=== PATIENT | male | born 1940 | race Caucasian/White ===

== ENCOUNTER → 2017-01-24 | Outpatient (CLI) | payer MEDICARE ==
[~2017-01-24] VITALS: Ht 180.3 cm; Wt 94.3 kg
[~2017-01-24] MED LIST: AMLO5TAB2 PO; ASPI81TA85 PO; BRIN1OPH OU; FINA5TAB2 PO; FISH1000 PO; LATA5OPD OD; LIDOCAINE 2% INJ 100 MG/5 ML SDV (FOR ANES.) As Ordered ONE; LISI-538 PO; LR 1,000 ML IV SCH; MULT1TAB11 PO; NAPR500T2 PO; PROPOFOL 200 MG/20 ML VIAL As Ordered ONE; SIMV10TA2 PO; SYMB16INH INH; fentaNYL 100 MCG/2 ML INJECTION (J3010) As Ordered ONE
--- NOTE | 2017-01-24 10:59 | ROOR ---
Patient Name: Tony Musa Procedure Date: 01/24/2017 10:04 AM Date of : 1940 Age: 76 Room: [facility] Gender: Male Note Status: Finalized Procedure: Upper GI endoscopy Indications: Iron deficiency anemia Providers: Toby Turcios MD Referring MD: Larry Diaz MD Requesting Provider: Medicines: Monitored Anesthesia Care Complications: No immediate complications. Procedure: Pre-Anesthesia Assessment: - Prior to the procedure, a History and Physical was performed, and patient medications and allergies were reviewed. The patient is competent. The risks and benefits of the procedure and the sedation options and risks were discussed with the patient. All questions were answered and informed consent was obtained. Patient identification and proposed procedure were verified by the physician, the nurse and the anesthesiologist in the procedure room. Mental Status Examination: alert and oriented. Airway Examination: normal oropharyngeal airway and neck mobility. CV Examination: regular rate and rhythm. Prophylactic Antibiotics: The patient does not require prophylactic antibiotics. Prior Anticoagulants: The patient has taken no previous anticoagulant or antiplatelet agents. ASA Grade Assessment: II - A patient with mild systemic disease. After reviewing the risks and benefits, the patient was deemed in satisfactory condition to undergo the procedure. The anesthesia plan was to use monitored anesthesia care (MAC). Immediately prior to administration of medications, the patient was re-assessed for adequacy to receive sedatives. The heart rate, respiratory rate, oxygen saturations, blood pressure, adequacy of pulmonary ventilation, and response to care were monitored throughout the procedure. The physical status of the patient was re-assessed after the procedure. The Endoscope was introduced through the mouth, and advanced to the second part of duodenum. The upper GI endoscopy was accomplished without difficulty. The patient tolerated the procedure well. Findings: The examined esophagus was normal. The entire examined stomach was normal. One non-bleeding linear duodenal ulcer was found in the duodenal bulb. Patient has a linear erosion/scar consistent witha healing/healed ulcer. Impression: - Normal esophagus. - Normal stomach. - One non-bleeding duodenal ulcer. - No specimens collected. Recommendation: - Discharge patient to home. - Resume previous diet. - Continue present medications. Toby Turcios MD 01/24/2017 10:59:23 AM Number of Addenda: 0 Note Initiated On: 01/24/2017 10:04 AM Estimated Blood Loss: Estimated blood loss: none.
--- NOTE | 2017-01-24 11:31 | ROOR ---
Patient Name: Tony Musa Procedure Date: 01/24/2017 10:05 AM Date of : 1940 Age: 76 Room: [facility] Gender: Male Note Status: Finalized Procedure: Colonoscopy Indications: Iron deficiency anemia Providers: Toby Turcios MD Referring MD: Larry Diaz MD Requesting Provider: Medicines: Monitored Anesthesia Care Complications: No immediate complications. Procedure: Pre-Anesthesia Assessment: - Prior to the procedure, a History and Physical was performed, and patient medications and allergies were reviewed. The patient is competent. The risks and benefits of the procedure and the sedation options and risks were discussed with the patient. All questions were answered and informed consent was obtained. Patient identification and proposed procedure were verified by the physician, the nurse and the anesthesiologist in the procedure room. Mental Status Examination: alert and oriented. Airway Examination: normal oropharyngeal airway and neck mobility. CV Examination: regular rate and rhythm. Prophylactic Antibiotics: The patient does not require prophylactic antibiotics. Prior Anticoagulants: The patient has taken no previous anticoagulant or antiplatelet agents. ASA Grade Assessment: II - A patient with mild systemic disease. After reviewing the risks and benefits, the patient was deemed in satisfactory condition to undergo the procedure. The anesthesia plan was to use monitored anesthesia care (MAC). Immediately prior to administration of medications, the patient was re-assessed for adequacy to receive sedatives. The heart rate, respiratory rate, oxygen saturations, blood pressure, adequacy of pulmonary ventilation, and response to care were monitored throughout the procedure. The physical status of the patient was re-assessed after the procedure. The Colonoscope was introduced through the anus and advanced to the cecum, identified by appendiceal orifice and ileocecal valve. The colonoscopy was somewhat difficult due to significant looping. The patient tolerated the procedure well. The quality of the bowel preparation was excellent. Findings: The perianal and digital rectal examinations were normal. A few medium-mouthed diverticula were found in the sigmoid colon. The transverse colon, hepatic flexure and ascending colon revealed significantly excessive looping. The exam was otherwise without abnormality. Impression: - Diverticulosis in the sigmoid colon. - There was significant looping of the colon. - The examination was otherwise normal. - No specimens collected. Recommendation: - Discharge patient to home. - Resume previous diet. Toby Turcios MD 01/24/2017 11:31:27 AM Number of Addenda: 0 Note Initiated On: 01/24/2017 10:05 AM Estimated Blood Loss: Estimated blood loss: none.
[2017-01-24 11:38] VITALS: BP 124/66
== END ==
LOC: M OPP 08:14
PROVIDERS: ATTEND Surgery
DX: D50.9 Iron deficiency anemia, unspecified (principal); Z86.010 Personal history of colon polyps; Q43.8 Other specified congenital malformations of intestine; K26.9 Duodenal ulcer, unspecified as acute or chronic, without hemorrhage or perforation; I10 Essential (primary) hypertension; E78.00 Pure hypercholesterolemia, unspecified; Z87.891 Personal history of nicotine dependence; Z79.82 Long term (current) use of aspirin; Z79.899 Other long term (current) drug therapy; Z88.0 Allergy status to penicillin
CPT/HCPCS: 43235; 45378; 99156; 99157; J3010

== ENCOUNTER 2017-02-22 09:15 | Outpatient (RCR) | payer MEDICARE ==
[~2017-02-22 09:15] MED LIST changes: -LIDOCAINE 2% INJ 100 MG/5 ML SDV (FOR ANES.) As Ordered ONE; -LR 1,000 ML IV SCH; -PROPOFOL 200 MG/20 ML VIAL As Ordered ONE; -fentaNYL 100 MCG/2 ML INJECTION (J3010) As Ordered ONE
== END 2017-02-24 ==
LOC: M OT 09:15
PROVIDERS: ATTEND Family Medicine
DX: Z51.89 Encounter for other specified aftercare (principal); M65.331 Trigger finger, right middle finger
CPT/HCPCS: 97035; 97140; 97165; 97760; G8984; G8985

== ENCOUNTER 2017-03-16 10:02 | Outpatient (RCR) | payer MEDICARE | END 2017-03-26 | LOC: M OT 10:02 | PROVIDERS: ATTEND Family Medicine | DX: Z51.89 Encounter for other specified aftercare (principal); M65.331 Trigger finger, right middle finger; M79.641 Pain in right hand; M79.642 Pain in left hand | CPT/HCPCS: 97035; 97110; 97140; G8984; G8985 ==

== ENCOUNTER 2017-04-25 09:41 | Outpatient (RCR) | payer MEDICARE | END 2017-04-26 | LOC: M OT 09:41 | PROVIDERS: ATTEND Family Medicine | DX: Z51.89 Encounter for other specified aftercare (principal); M65.331 Trigger finger, right middle finger | CPT/HCPCS: 97035; 97110; 97168; G8984; G8985 ==

== ENCOUNTER 2017-05-09 09:37 | Outpatient (RCR) | payer MEDICARE ==
[~2017-05-09 09:37] MED LIST changes: -NAPR500T2 PO; +NAPR500T3 PO
== END 2017-05-26 ==
LOC: M OT 09:37
PROVIDERS: ATTEND Family Medicine
DX: Z51.89 Encounter for other specified aftercare (principal); M65.331 Trigger finger, right middle finger
CPT/HCPCS: 97035; 97110; G8984; G8985; G8986

== ENCOUNTER → 2017-05-17 | Outpatient (CLI) | payer MEDICARE ==
[~2017-05-17] MED LIST changes: +NAPR500T2 PO; -NAPR500T3 PO
[2017-05-17 19:12] LABS: MEAN CORPUSCULAR HGB CONC 33.7 g/dl (32.0-36.5); MEAN CORPUSCULAR VOLUME 97.9 fl (80.0-96.0); WHITE BLOOD COUNT 4.7 K/mm3 (4.0-10.0)
[2017-05-17 21:31] LABS: BANDS 1 % (< 11); BASOPHILS 1 % (0-4); EOSINOPHILS 8 % (0-5)
[2017-05-18 09:14] LABS: CONTROL LINE HPYORI INT CTR LINE PRESENT
== END ==
LOC: M WUC 14:23
PROVIDERS: ATTEND Family Medicine
DX: D64.9 Anemia, unspecified (principal); K26.9 Duodenal ulcer, unspecified as acute or chronic, without hemorrhage or perforation

== ENCOUNTER → 2017-05-20 | Outpatient (REF) | payer MEDICARE | LOC: M LAB REF 09:06 | PROVIDERS: ATTEND Physician Assistant | DX: N39.0 Urinary tract infection, site not specified (principal) ==

== ENCOUNTER → 2017-06-01 | Outpatient (REF) | payer MEDICARE ==
[~2017-06-01] MED LIST changes: -NAPR500T2 PO; +NAPR500T3 PO
== END ==
LOC: M SMT 12:36
PROVIDERS: ATTEND Nurse Practitioner Women's Health
DX: N40.1 Benign prostatic hyperplasia with lower urinary tract symptoms (principal)
CPT/HCPCS: 51798; 81001; 87086; G0463

== ENCOUNTER → 2017-06-02 | Outpatient (CLI) | payer MEDICARE ==
--- NOTE | 2017-06-02 17:48 | REP ---
Clinical: Benign prostatic hypertrophy with urinary tract symptoms. Findings: Lung bases are clear. Visualized heart and pericardium normal. Liver, spleen, pancreas, gallbladder, bilateral adrenal glands are normal for noncontrast evaluation. Kidneys demonstrate age-related atrophic changes, chronic perinephric stranding, and hypodensities suggesting cysts measuring up to approximately 1.7 cm. No hydroureteronephrosis, intrarenal or obstructing ureteral calculi are identified. The enteric system is without obstruction or acute inflammatory process. Pelvis demonstrates normal appearing bladder and coarse calcifications within the prostate. No pelvic fluid or ascites. No free air. No adenopathy. Atherosclerotic changes to the aorta and vasculature noted without aneurysm. Musculoskeletal structures demonstrate age-related degenerative change without focal osseous abnormality. Impression: 1. Chronic changes to the kidneys including suspected bilateral cysts without hydronephrosis or nephrolithiasis. 2. Atherosclerotic changes to the vasculature and degenerative changes the musculoskeletal structures. 3. Otherwise no acute abdominopelvic pathology appreciated. Signed by Chaitanya Garcia MD 06/02/2017 05:40 P
== END ==
LOC: M RAD 17:16
PROVIDERS: ATTEND Nurse Practitioner Women's Health
DX: N40.1 Benign prostatic hyperplasia with lower urinary tract symptoms (principal); Z87.440 Personal history of urinary (tract) infections

== ENCOUNTER → 2018-01-22 | Outpatient (CLI) | payer MEDICARE ==
[2018-01-22 16:53] LABS: BASO # 0.1 10^3/uL (0.0-0.2); EOS # 0.3 10^3/uL (0.0-0.50); EOS % 6.8 % (0.0-3.0); HEMATOCRIT 29.5 % (42.0-52.0); HEMOGLOBIN 9.8 g/dl (14.0-18.0); IMMATURE GRANULOCYTE % 0.2 % (0-3.0); LYMPH # 0.8 10^3/uL (1.5-4.5); LYMPH % 17.1 % (24.0-44.0); MEAN CORPUSCULAR HEMOGLOBIN 31.9 pg (27.0-33.0); MEAN CORPUSCULAR HGB CONC 33.2 g/dl (32.0-36.5); MEAN CORPUSCULAR VOLUME 96.1 fl (80.0-96.0); MONO # 0.5 10^3/uL (0.0-0.8); MONO % 10.1 % (0.0-5.0); NEUTROPHILS # 3.2 10^3/uL (1.8-7.7); NEUTROPHILS % 64.8 % (36.0-66.0); PLATELET COUNT, AUTOMATED 208 10^3/uL (150-450); RED BLOOD COUNT 3.07 10^6/uL (4.30-6.10); RED CELL DISTRIBUTION WIDTH 15.3 % (11.5-14.5); WHITE BLOOD COUNT 4.9 10^3/uL (4.0-10.0)
[2018-01-22 17:49] LABS: FERRITIN 105 NG/ML (26-388); IRON (FE) 110 UG/DL (65-175); PERCENT SATURATION 37.9 % (19.7-50.0); PROSTATIC SPECIFIC AG MONITOR 0.18 NG/ML (< 4.0); TOTAL IRON BINDING CAPACITY 290 UG/DL (250-450)
== END ==
LOC: M WUC 11:39
DX: N40.0 Benign prostatic hyperplasia without lower urinary tract symptoms (principal); D64.9 Anemia, unspecified
CPT/HCPCS: 83550

== ENCOUNTER → 2018-03-23 | Outpatient (CLI) | payer MEDICARE ==
[2018-03-23 12:58] LABS: BASO % 0.8 % (0.0-1.0); EOS # 0.3 10^3/uL (0.0-0.50); EOS % 6.8 % (0.0-3.0); HEMATOCRIT 28.8 % (42.0-52.0); HEMOGLOBIN 9.7 g/dl (13.5-17.5); IMMATURE GRANULOCYTE % 0.4 % (0-3.0); LYMPH % 22.1 % (24.0-44.0); MEAN CORPUSCULAR HEMOGLOBIN 32.7 pg (27.0-33.0); MEAN CORPUSCULAR HGB CONC 33.7 g/dl (32.0-36.5); MONO # 0.6 10^3/uL (0.0-0.8); MONO % 12.1 % (0.0-5.0); NEUTROPHILS # 2.7 10^3/uL (1.8-7.7); NEUTROPHILS % 57.8 % (36.0-66.0); PLATELET COUNT, AUTOMATED 230 10^3/uL (150-450); RED BLOOD COUNT 2.97 10^6/uL (4.30-6.10); RED CELL DISTRIBUTION WIDTH 14.6 % (11.5-14.5); RETIC HEMOGLOBIN EQUIVALENT 34.9 pg (24-36); RETICULOCYTE # 33.9 10^9/L (17-77); RETICULOCYTE % 1.1 % (0.5-1.5); WHITE BLOOD COUNT 4.7 10^3/uL (4.0-10.0)
[2018-03-23 13:01] LABS: REASON FOR REVIEW ANEMIA / RBC MORPH; SLIDE REVIEW Report; SOURCE PERIPHERAL SMEAR
[2018-03-23 13:22] LABS: FERRITIN 113 NG/ML (26-388); IRON (FE) 98 UG/DL (65-175); PERCENT SATURATION 31.3 % (19.7-50.0); TOTAL IRON BINDING CAPACITY 313 UG/DL (250-450)
[2018-03-23 13:27] LABS: VITAMIN B12 LEVEL 910 PG/ML
[2018-03-23 13:28] LABS: FOLATE > 24.0 NG/ML
== END ==
LOC: M LAB 11:42
DX: D64.9 Anemia, unspecified (principal)
CPT/HCPCS: 82746

== ENCOUNTER → 2018-04-06 | Outpatient (REF) | payer MEDICARE | LOC: M LAB REF 10:16 | DX: R30.0 Dysuria (principal) | CPT/HCPCS: 87186 ==

== ENCOUNTER → 2018-04-16 | Outpatient (REF) | payer MEDICARE ==
[2018-04-16 13:59] LABS: APPEARANCE, URINE TURBID (CLEAR); BACTERIA, URINE AUTO 1+ (NEGATIVE); BILIRUBIN, URINE AUTO NEGATIVE (NEGATIVE); BLOOD, URINE BLOOD 2+ (NEGATIVE); COLOR, URINE YELLOW (YELLOW); GLUCOSE, URINE (UA) AUTO NEGATIVE (NEGATIVE); KETONE, URINE AUTO NEGATIVE (NEGATIVE); LEUKOCYTE ESTERASE, URINE AUTO 3+ (NEGATIVE); NITRITE, URINE AUTO NEGATIVE (NEGATIVE); PROTEIN, URINE AUTO 2+ mg/dL (NEGATIVE); RBC, URINE AUTO 69 /HPF (0-3); SPECIFIC GRAVITY URINE AUTO 1.017 (1.002-1.035); SQUAMOUS EPITHELIAL CELL UR AU 0 /HPF (0-6); TRANSITIONAL EPITHELIAL AUTO 4 /HPF; UROBILINOGEN, URINE AUTO 0.2 mg/dL (0.0-2.0); WBC, URINE AUTO TNTC /HPF (0-3)
== END ==
LOC: M SMT 11:35
DX: N39.0 Urinary tract infection, site not specified (principal)
CPT/HCPCS: 81001

== ENCOUNTER → 2018-04-23 | Outpatient (CLI) | payer MEDICARE ==
[2018-04-23 12:12] LABS: BASO % 0.4 % (0.0-1.0); EOS # 0.4 10^3/uL (0.0-0.50); EOS % 3.9 % (0.0-3.0); HEMATOCRIT 28.2 % (42.0-52.0); HEMOGLOBIN 9.5 g/dl (13.5-17.5); IMMATURE GRANULOCYTE % 0.5 % (0-3.0); LYMPH # 0.9 10^3/uL (1.5-4.5); LYMPH % 9.4 % (24.0-44.0); MEAN CORPUSCULAR HEMOGLOBIN 32.4 pg (27.0-33.0); MEAN CORPUSCULAR HGB CONC 33.7 g/dl (32.0-36.5); MEAN CORPUSCULAR VOLUME 96.2 fl (80.0-96.0); MONO # 0.8 10^3/uL (0.0-0.8); MONO % 8.2 % (0.0-5.0); NEUTROPHILS # 7.1 10^3/uL (1.8-7.7); NEUTROPHILS % 77.6 % (36.0-66.0); PLATELET COUNT, AUTOMATED 231 10^3/uL (150-450); RED BLOOD COUNT 2.93 10^6/uL (4.30-6.10); RED CELL DISTRIBUTION WIDTH 14.9 % (11.5-14.5); WHITE BLOOD COUNT 9.2 10^3/uL (4.0-10.0)
[2018-04-23 12:22] LABS: ALBUMIN 3.9 GM/DL (3.2-5.2); ALBUMIN/GLOBULIN RATIO 1.44 (1.00-1.93); ALKALINE PHOSPHATASE 70 U/L (45-117); ALT/SGPT 17 U/L (12-78); ANION GAP 7 MEQ/L (8-16); AST/SGOT 12 U/L (7-37); BILIRUBIN,TOTAL 0.4 MG/DL (0.2-1.0); BLOOD UREA NITROGEN 35 MG/DL (7-18); CALCIUM LEVEL 8.7 MG/DL (8.8-10.2); CARBON DIOXIDE LEVEL 26 MEQ/L (21-32); CHLORIDE LEVEL 104 MEQ/L (98-107); CREATININE FOR GFR 2.24 MG/DL (0.70-1.30); GLOMERULAR FILTRATION RATE 30.3 (>42); GLUCOSE, FASTING 104 MG/DL (70-100); POTASSIUM SERUM 4.8 MEQ/L (3.5-5.1); SODIUM LEVEL 137 MEQ/L (136-145); TOTAL PROTEIN 6.6 GM/DL (6.4-8.2)
== END ==
LOC: M WUC 08:08
DX: Z01.812 Encounter for preprocedural laboratory examination (principal); Z79.899 Other long term (current) drug therapy
CPT/HCPCS: 80053

== ENCOUNTER 2018-04-24 06:32 | Day surgery (SDC) | payer MEDICARE ==
[2018-04-24] MEDS: LR 1,000 ML IV (07:06)
[2018-04-24] MEDS ORDERED: PROPOFOL 200 MG/20 ML VIAL As Ordered (07:19)
[2018-04-24] MEDS ORDERED: LIDOCAINE 2% INJ 100 MG/5 ML SDV (FOR ANES.) As Ordered (07:19)
[2018-04-24] MEDS ORDERED: fentaNYL 100 MCG/2 ML INJECTION (J3010) As Ordered (07:20)
== END 2018-04-24 08:35 | disposition home or self-care (01) ==
LOC: M OPP 06:32
DX: K31.89 Other diseases of stomach and duodenum (principal); D50.9 Iron deficiency anemia, unspecified; I10 Essential (primary) hypertension; E78.00 Pure hypercholesterolemia, unspecified; N40.0 Benign prostatic hyperplasia without lower urinary tract symptoms; M12.9 Arthropathy, unspecified; N39.0 Urinary tract infection, site not specified; Z79.899 Other long term (current) drug therapy; Z80.0 Family history of malignant neoplasm of digestive organs; Z87.891 Personal history of nicotine dependence; Z95.0 Presence of cardiac pacemaker; Z98.1 Arthrodesis status
CPT/HCPCS: 43239

== ENCOUNTER → 2018-05-29 | Outpatient (CLI) | payer MEDICARE ==
[2018-05-29 12:10] LABS: BASO % 1.1 % (0.0-1.0); EOS # 0.2 10^3/uL (0.0-0.50); EOS % 6.2 % (0.0-3.0); HEMATOCRIT 26.3 % (42.0-52.0); HEMOGLOBIN 8.8 g/dl (13.5-17.5); IMMATURE GRANULOCYTE % 0.3 % (0-3.0); LYMPH # 0.9 10^3/uL (1.5-4.5); LYMPH % 26.4 % (24.0-44.0); MEAN CORPUSCULAR HEMOGLOBIN 32.1 pg (27.0-33.0); MEAN CORPUSCULAR HGB CONC 33.5 g/dl (32.0-36.5); MONO # 0.6 10^3/uL (0.0-0.8); MONO % 16.3 % (0.0-5.0); NEUTROPHILS # 1.8 10^3/uL (1.8-7.7); NEUTROPHILS % 49.7 % (36.0-66.0); PLATELET COUNT, AUTOMATED 212 10^3/uL (150-450); RED BLOOD COUNT 2.74 10^6/uL (4.30-6.10); RED CELL DISTRIBUTION WIDTH 15.6 % (11.5-14.5); WHITE BLOOD COUNT 3.6 10^3/uL (4.0-10.0)
[2018-05-29 12:27] LABS: ANION GAP 9 MEQ/L (8-16); BLOOD UREA NITROGEN 19 MG/DL (7-18); CALCIUM LEVEL 8.6 MG/DL (8.8-10.2); CARBON DIOXIDE LEVEL 28 MEQ/L (21-32); CHLORIDE LEVEL 105 MEQ/L (98-107); CREATININE FOR GFR 1.17 MG/DL (0.70-1.30); GLOMERULAR FILTRATION RATE > 60.0 (>42); GLUCOSE, FASTING 89 MG/DL (70-100); POTASSIUM SERUM 4.1 MEQ/L (3.5-5.1); SODIUM LEVEL 142 MEQ/L (136-145)
== END ==
LOC: M WUC 08:48
DX: D64.9 Anemia, unspecified (principal)
CPT/HCPCS: 80048

== ENCOUNTER → 2018-11-02 | Outpatient (CLI) | payer MEDICARE ==
[2018-11-02 16:53] LABS: BASO % 0.6 % (0.0-1.0); EOS # 0.2 10^3/uL (0.0-0.50); EOS % 3.5 % (0.0-3.0); HEMATOCRIT 26.8 % (42.0-52.0); HEMOGLOBIN 8.9 g/dl (13.5-17.5); IMMATURE GRANULOCYTE % 0.2 % (0-3.0); LYMPH # 1.1 10^3/uL (1.5-4.5); LYMPH % 20.7 % (24.0-44.0); MEAN CORPUSCULAR HGB CONC 33.2 g/dl (32.0-36.5); MEAN CORPUSCULAR VOLUME 96.4 fl (80.0-96.0); MONO # 0.4 10^3/uL (0.0-0.8); MONO % 8.3 % (0.0-5.0); NEUTROPHILS # 3.5 10^3/uL (1.8-7.7); NEUTROPHILS % 66.7 % (36.0-66.0); PLATELET COUNT, AUTOMATED 233 10^3/uL (150-450); RED BLOOD COUNT 2.78 10^6/uL (4.30-6.10); RED CELL DISTRIBUTION WIDTH 15.6 % (11.5-14.5); WHITE BLOOD COUNT 5.2 10^3/uL (4.0-10.0)
[2018-11-02 16:57] LABS: ALBUMIN 3.7 GM/DL (3.2-5.2); ALBUMIN/GLOBULIN RATIO 1.16 (1.00-1.93); ALKALINE PHOSPHATASE 78 U/L (45-117); ALT/SGPT 17 U/L (12-78); ANION GAP 9 MEQ/L (8-16); AST/SGOT 12 U/L (7-37); BILIRUBIN,TOTAL 0.4 MG/DL (0.2-1.0); BLOOD UREA NITROGEN 22 MG/DL (7-18); CALCIUM LEVEL 8.2 MG/DL (8.8-10.2); CARBON DIOXIDE LEVEL 26 MEQ/L (21-32); CHLORIDE LEVEL 102 MEQ/L (98-107); CREATININE FOR GFR 1.04 MG/DL (0.70-1.30); FERRITIN 153 NG/ML (26-388); GLOMERULAR FILTRATION RATE > 60.0 (>35); GLUCOSE, FASTING 107 MG/DL (70-100); IRON (FE) 95 UG/DL (65-175); PERCENT SATURATION 34.1 % (19.7-50.0); POTASSIUM SERUM 4.7 MEQ/L (3.5-5.1); SODIUM LEVEL 137 MEQ/L (136-145); TOTAL IRON BINDING CAPACITY 279 UG/DL (250-450); TOTAL PROTEIN 6.9 GM/DL (6.4-8.2)
== END ==
LOC: M WUC 14:09
DX: D64.9 Anemia, unspecified (principal)
CPT/HCPCS: 83550

== ENCOUNTER → 2019-04-09 | Outpatient (CLI) | payer MEDICARE ==
[~2019-04-09] MED LIST changes: -AMLO5TAB2 PO; +AMLO5TAB6 PO; +FERR32TA PO; +LATA0.0013 OD; -LATA5OPD OD; +NAPR-885 PO; -NAPR500T3 PO; +OMEP40CA2 PO; +TAB-TAB3 PO
[2019-04-09 09:53] LABS: HEMATOCRIT 28.6 % (42.0-52.0); HEMOGLOBIN 9.4 g/dl (13.5-17.5); MEAN CORPUSCULAR HEMOGLOBIN 32.2 pg (27.0-33.0); MEAN CORPUSCULAR HGB CONC 32.9 g/dl (32.0-36.5); MEAN CORPUSCULAR VOLUME 97.9 fl (80.0-96.0); PLATELET COUNT, AUTOMATED 206 10^3/uL (150-450); RED BLOOD COUNT 2.92 10^6/uL (4.30-6.10)
[2019-04-09 10:01] LABS: BLOOD UREA NITROGEN 24 MG/DL (7-18); CALCIUM LEVEL 8.8 MG/DL (8.8-10.2); CARBON DIOXIDE LEVEL 29 MEQ/L (21-32); CHLORIDE LEVEL 103 MEQ/L (98-107); CREATININE FOR GFR 1.04 MG/DL (0.70-1.30); GLOMERULAR FILTRATION RATE > 60.0 (>35); GLUCOSE, FASTING 97 MG/DL (70-100); POTASSIUM SERUM 4.5 MEQ/L (3.5-5.1); SODIUM LEVEL 136 MEQ/L (136-145)
--- NOTE | 2019-04-09 20:44 | ECGEPIP ---
Stationary ECG Study [facility] Test Date: 2019-04-09 Pat Name: PANTERA CLAIRE Department: Room: - Gender: M Motor Vehicle License Clerk: : 1940 Requested By: LANEY BEDOLLA Order Number: [id number] Reading MD: Cherelle Brewer Measurements Intervals [place] Rate: 66 P: 61 WV: 203 QRS: 67 QRSD: 162 T: 38 QT: 413 QTc: 434 Interpretive Statements SINUS RHYTHM WITH FIRST DGR AV BLOCK RIGHT BUNDLE BRANCH BLOCK NO PRIOR Electronically Signed On 04-09-2019 20:44:34 EDT by Cherelle Brewer
== END ==
LOC: M LAB 09:10
PROVIDERS: ATTEND Family Medicine
DX: Z01.818 Encounter for other preprocedural examination (principal)

== ENCOUNTER → 2019-08-30 | Outpatient (REF) | payer MEDICARE ==
[~2019-08-30] MED LIST changes: +IRON1TAB2 PO; -OMEP40CA2 PO; +OMEP40CA97 PO; -SIMV10TA2 PO; +SIMV10TA21 PO
[2019-08-30 19:22] LABS: APPEARANCE, URINE CLOUDY (CLEAR); BACTERIA, URINE AUTO NEGATIVE (NEGATIVE); BILIRUBIN, URINE AUTO NEGATIVE (NEGATIVE); BLOOD, URINE BLOOD 3+ (NEGATIVE); COLOR, URINE YELLOW (YELLOW); GLUCOSE, URINE (UA) AUTO NEGATIVE (NEGATIVE); KETONE, URINE AUTO NEGATIVE (NEGATIVE); LEUKOCYTE ESTERASE, URINE AUTO 3+ (NEGATIVE); NITRITE, URINE AUTO NEGATIVE (NEGATIVE); PROTEIN, URINE AUTO 1+ mg/dL (NEGATIVE); RBC, URINE AUTO 61 /HPF (0-3); SPECIFIC GRAVITY URINE AUTO 1.008 (1.002-1.035); SQUAMOUS EPITHELIAL CELL UR AU 0 /HPF (0-6); UROBILINOGEN, URINE AUTO 0.2 mg/dL (0.0-2.0); WBC, URINE AUTO TNTC /HPF (0-3)
== END ==
LOC: M LAB REF 17:56
PROVIDERS: ATTEND Nurse Practitioner Women's Health
DX: Z87.440 Personal history of urinary (tract) infections (principal); Z79.899 Other long term (current) drug therapy

== ENCOUNTER → 2019-10-18 | Outpatient (CLI) | payer MEDICARE ==
[~2019-10-18] MED LIST changes: +SIMV10TA2 PO; -SIMV10TA21 PO
[2019-10-20 00:06] LABS: Lyme Disease IgG/IgM Antibodie <0.91 ISR (0.00-0.90); Lyme Disease IgM Ab Quantitati <0.80 index (0.00-0.79)
== END ==
LOC: M WUC 11:01
PROVIDERS: ATTEND Family Medicine
DX: A69.20 Lyme disease, unspecified (principal)

== ENCOUNTER → 2019-11-21 | Outpatient (REF) | payer MEDICARE ==
[~2019-11-21] MED LIST changes: -SIMV10TA2 PO; +SIMV10TA21 PO
[2019-11-21 14:37] LABS: APPEARANCE, URINE HAZY (CLEAR); BACTERIA, URINE AUTO 1+ (NEGATIVE); BILIRUBIN, URINE AUTO NEGATIVE (NEGATIVE); BLOOD, URINE BLOOD 2+ (NEGATIVE); COLOR, URINE YELLOW (YELLOW); GLUCOSE, URINE (UA) AUTO NEGATIVE (NEGATIVE); KETONE, URINE AUTO NEGATIVE (NEGATIVE); LEUKOCYTE ESTERASE, URINE AUTO 3+ (NEGATIVE); NITRITE, URINE AUTO NEGATIVE (NEGATIVE); PROTEIN, URINE AUTO 1+ mg/dL (NEGATIVE); RBC, URINE AUTO 18 /HPF (0-3); SPECIFIC GRAVITY URINE AUTO 1.009 (1.002-1.035); SQUAMOUS EPITHELIAL CELL UR AU 0 /HPF (0-6); UROBILINOGEN, URINE AUTO 0.2 mg/dL (0.0-2.0); WBC, URINE AUTO TNTC /HPF (0-3)
== END ==
LOC: M SMT 14:04
PROVIDERS: ATTEND Nurse Practitioner Women's Health
DX: R35.0 Frequency of micturition (principal)

== ENCOUNTER → 2019-11-29 | Outpatient (CLI) | payer MEDICARE ==
--- NOTE | 2019-11-29 08:06 | REP ---
Clinical: Urinary frequency. Technique: Axial noncontrast images from the lung bases to the pubic symphysis with coronal and sagittal re-formations. Findings: Lung bases are clear. Liver, spleen, pancreas, gallbladder, and bilateral adrenal glands are normal for noncontrast evaluation. The kidneys demonstrate mild chronic-appearing perinephric stranding and subtle hypodensities suggesting cysts. There is no evidence for nephroureterolithiasis or hydroureteronephrosis. The enteric system demonstrates moderate fecal stasis without obstruction or acute inflammatory process. Scattered sigmoid diverticula noted without acute diverticulitis. Pelvis demonstrates normal bladder and age appropriate prostate/seminal vesicles. No ascites. No free air. No adenopathy. Atherosclerotic changes of the aorta and vasculature without aneurysm. Musculoskeletal structures demonstrate degenerative changes without focal osseous abnormality. Impression: 1. Mild chronic symmetric perinephric stranding and suspected bilateral renal cysts which may be confirmed by ultrasound. 2. Sigmoid diverticula without acute diverticulitis. 3. Atherosclerotic disease 4. No further acute abdominopelvic pathology appreciated Electronically Signed by Chaitanya Garcia MD 11/29/2019 07:57 A
== END ==
LOC: M RAD 07:22
PROVIDERS: ATTEND Nurse Practitioner Women's Health
DX: R35.0 Frequency of micturition (principal); N39.0 Urinary tract infection, site not specified

== ENCOUNTER → 2020-01-01 | Outpatient (REF) | payer MEDICARE ==
[~2020-01-01] MED LIST changes: +NITR-67 PO; +OMEP-218 PO; +SULF400T14 PO
[2020-01-01 14:13] LABS: APPEARANCE, URINE CLOUDY (CLEAR); BACTERIA, URINE AUTO 1+ (NEGATIVE); BILIRUBIN, URINE AUTO NEGATIVE (NEGATIVE); BLOOD, URINE BLOOD 2+ (NEGATIVE); COLOR, URINE YELLOW (YELLOW); GLUCOSE, URINE (UA) AUTO NEGATIVE (NEGATIVE); KETONE, URINE AUTO NEGATIVE (NEGATIVE); LEUKOCYTE ESTERASE, URINE AUTO 3+ (NEGATIVE); NITRITE, URINE AUTO NEGATIVE (NEGATIVE); PROTEIN, URINE AUTO 1+ mg/dL (NEGATIVE); RBC, URINE AUTO 19 /HPF (0-3); SPECIFIC GRAVITY URINE AUTO 1.012 (1.002-1.035); SQUAMOUS EPITHELIAL CELL UR AU 0 /HPF (0-6); UROBILINOGEN, URINE AUTO 0.2 mg/dL (0.0-2.0); WBC, URINE AUTO TNTC /HPF (0-3)
== END ==
LOC: M SMT 13:36
PROVIDERS: ATTEND Nurse Practitioner Women's Health
DX: R30.0 Dysuria (principal)

== ENCOUNTER → 2020-05-07 | Outpatient (REF) | payer MEDICARE ==
[2020-05-07 13:45] LABS: APPEARANCE, URINE CLOUDY (CLEAR); BACTERIA, URINE AUTO 1+ (NEGATIVE); BILIRUBIN, URINE AUTO NEGATIVE (NEGATIVE); BLOOD, URINE BLOOD 3+ (NEGATIVE); COLOR, URINE YELLOW (YELLOW); GLUCOSE, URINE (UA) AUTO NEGATIVE (NEGATIVE); KETONE, URINE AUTO NEGATIVE (NEGATIVE); LEUKOCYTE ESTERASE, URINE AUTO 3+ (NEGATIVE); NITRITE, URINE AUTO NEGATIVE (NEGATIVE); PROTEIN, URINE AUTO 2+ mg/dL (NEGATIVE); RBC, URINE AUTO 88 /HPF (0-3); SPECIFIC GRAVITY URINE AUTO 1.011 (1.002-1.035); SQUAMOUS EPITHELIAL CELL UR AU 0 /HPF (0-6); UROBILINOGEN, URINE AUTO 0.2 mg/dL (0.0-2.0); WBC, URINE AUTO TNTC /HPF (0-3)
== END ==
LOC: M SMT 13:22
PROVIDERS: ATTEND Nurse Practitioner Women's Health
DX: R30.0 Dysuria (principal)

== ENCOUNTER → 2020-06-08 | Outpatient (REF) | payer MEDICARE ==
[~2020-06-08] MED LIST changes: +AMLO1TAB24 PO; -AMLO5TAB6 PO; -ASPI81TA85 PO; +ASPI81TA86 PO; +FLOM0.4C39 PO
[2020-06-08 19:02] LABS: APPEARANCE, URINE CLEAR (CLEAR); BACTERIA, URINE AUTO NEGATIVE (NEGATIVE); BILIRUBIN, URINE AUTO NEGATIVE (NEGATIVE); BLOOD, URINE BLOOD NEGATIVE (NEGATIVE); COLOR, URINE STRAW (YELLOW); GLUCOSE, URINE (UA) AUTO NEGATIVE (NEGATIVE); KETONE, URINE AUTO NEGATIVE (NEGATIVE); LEUKOCYTE ESTERASE, URINE AUTO NEGATIVE (NEGATIVE); NITRITE, URINE AUTO NEGATIVE (NEGATIVE); PROTEIN, URINE AUTO NEGATIVE (NEGATIVE); RBC, URINE AUTO 0 /HPF (0-3); SPECIFIC GRAVITY URINE AUTO 1.005 (1.002-1.035); SQUAMOUS EPITHELIAL CELL UR AU 0 /HPF (0-6); UROBILINOGEN, URINE AUTO 0.2 mg/dL (0.0-2.0); WBC, URINE AUTO 0 /HPF (0-3)
== END ==
LOC: M SMT 17:01
PROVIDERS: ATTEND Nurse Practitioner Women's Health
DX: N39.0 Urinary tract infection, site not specified (principal)
CPT/HCPCS: 51798; 81001; 87086; G0463

== ENCOUNTER → 2020-08-07 | Outpatient (CLI) | payer MEDICARE ==
[2020-08-07 14:07] LABS: HEMATOCRIT 26.4 % (42.0-52.0); HEMOGLOBIN 8.8 g/dl (13.5-17.5); MEAN CORPUSCULAR HEMOGLOBIN 33.2 pg (27.0-33.0); MEAN CORPUSCULAR HGB CONC 33.3 g/dl (32.0-36.5); MEAN CORPUSCULAR VOLUME 99.6 fl (80.0-96.0); PLATELET COUNT, AUTOMATED 188 10^3/uL (150-450); RED BLOOD COUNT 2.65 10^6/uL (4.30-6.10)
[2020-08-07 14:34] LABS: ALBUMIN 3.8 GM/DL (3.2-5.2); ALT/SGPT 16 U/L (12-78); BILIRUBIN,TOTAL 0.5 MG/DL (0.2-1.0); BLOOD UREA NITROGEN 25 MG/DL (7-18); CALCIUM LEVEL 8.5 MG/DL (8.8-10.2); CARBON DIOXIDE LEVEL 27 MEQ/L (21-32); CHLORIDE LEVEL 105 MEQ/L (98-107); CREATININE FOR GFR 1.23 MG/DL (0.70-1.30); GLOMERULAR FILTRATION RATE > 60.0 (>35); GLUCOSE, FASTING 110 MG/DL (70-100); POTASSIUM SERUM 4.3 MEQ/L (3.5-5.1); SODIUM LEVEL 137 MEQ/L (136-145); TOTAL PROTEIN 6.9 GM/DL (6.4-8.2)
== END ==
LOC: M WUC 10:56
PROVIDERS: ATTEND Family Medicine
DX: Z01.818 Encounter for other preprocedural examination (principal)

== ENCOUNTER 2021-05-08 22:32 | Inpatient (IN) | payer MEDICARE ==
[~2021-05-08] VITALS: Ht 182.9 cm; Wt 97.7 kg
[~2021-05-08 22:32] MED LIST changes: -LISI-538 PO; +LISI20TA33 PO; +MULT-90 PO
[2021-05-08 23:29] LABS: BASO % 0.5 % (0.0-1.0); EOS # 0.2 10^3/uL (0.0-0.5); EOS % 2.7 % (0.0-3.0); HEMATOCRIT 26.5 % (42.0-52.0); HEMOGLOBIN 8.6 g/dl (13.5-17.5); LYMPH % 18.6 % (24.0-44.0); MEAN CORPUSCULAR HEMOGLOBIN 33.3 pg (27.0-33.0); MEAN CORPUSCULAR HGB CONC 32.5 g/dl (32.0-36.5); MEAN CORPUSCULAR VOLUME 102.7 fl (80.0-96.0); MONO # 0.7 10^3/uL (0.0-0.8); NEUTROPHILS # 3.7 10^3/uL (1.5-8.5); NEUTROPHILS % 65.8 % (36.0-66.0); PLATELET COUNT, AUTOMATED 187 10^3/uL (150-450); RED BLOOD COUNT 2.58 10^6/uL (4.30-6.10); WHITE BLOOD COUNT 5.6 10^3/uL (4.0-10.0)
[2021-05-08] MEDS ORDERED: NS 2,990 ML in IV 1 EA IV ONE (23:30)
[2021-05-08 23:41] LABS: ALBUMIN 3.4 GM/DL (3.2-5.2); ALT/SGPT 14 U/L (12-78); BILIRUBIN,DIRECT 0.2 MG/DL (0.0-0.2); BILIRUBIN,TOTAL 0.4 MG/DL (0.2-1.0); CK-MB VALUE MASS 3.2 NG/ML (<3.6); CPK CREATINE PHOSPHOKINASE 103 U/L (39-308); LIPASE 127 U/L (73-393); MB/CK RELATIVE INDEX 3.11 (< OR =4); TOTAL PROTEIN 5.9 GM/DL (6.4-8.2); TROPONIN I < 0.02 NG/ML (< 0.10)
[2021-05-09] VITALS (10 sets, daily range): BP systolic 120–134; BP diastolic 55–71
[2021-05-09] MEDS ORDERED: NOREPINEPHRINE BITARTRATE 8 MG in D5W 492 ML IV SCH (00:55)
[2021-05-09] MEDS ORDERED: LevoFLOXacin IV 750 MG in IV 1 EA IV ONE (00:55)
[2021-05-09] MEDS ORDERED: LISI10TA22 PO (01:06)
[2021-05-09] MEDS ORDERED: THERTAB52 PO (01:08)
--- NOTE | 2021-05-09 01:37 | REPVR ---
PROCEDURE INFORMATION: Exam: CT Abdomen And Pelvis Without Contrast Exam date and time: 05/08/2021 12:29 AM Age: 80 years old Clinical indication: Abdominal pain; Generalized; Additional info: N/v/d, abd pain, ora TECHNIQUE: Imaging protocol: Computed tomography of the abdomen and pelvis without contrast. Radiation optimization: All CT scans at this facility use at least one of these dose optimization techniques: automated exposure control; mA and/or kV adjustment per patient size (includes targeted exams where dose is matched to clinical indication); or iterative reconstruction. COMPARISON: CT ABD PELVIS W/O CONTRAST 11/29/2019 7:33 AM FINDINGS: Lungs: Minimal bibasilar fibro-atelectatic change. Liver: Normal. No mass. Gallbladder and bile ducts: The gallbladder is somewhat contracted with no stones. Pancreas: Normal. No ductal dilation. Spleen: Normal. No splenomegaly. Adrenal glands: Normal. No mass. Kidneys and ureters: Normal. No hydronephrosis. Stomach and bowel: Borderline distention of the stomach with food material. Slight diffuse colonic wall thickening with many areas which are collapsed or contracted and question of slight pericolonic induration. Appendix: A normal retrocecal appendix is seen. Intraperitoneal space: Generalized edema of the mesentery. Vasculature: There is mild calcification of the abdominal aorta with extension into the iliac arteries. Lymph nodes: Unremarkable. No enlarged lymph nodes. Urinary bladder: Unremarkable as visualized. Reproductive: Unremarkable as visualized. Bones/joints: Degenerative change of the lumbar spine, greatest at L3-L4. Soft tissues: Unremarkable. IMPRESSION: 1. Question of minimal nonspecific pancolitis. 2. There is borderline distention of the stomach which in view of a somewhat contracted gallbladder likely reflects recent ingestion. 3. Otherwise negative CT abdomen/pelvis. Electronically signed by: Tien Amos On 05/09/2021 01:36:46 AM
[2021-05-09] MEDS ORDERED: ACETAMINOPHEN TAB 650MG DOSE (2X325MG) PO PRN (03:00)
[2021-05-09] MEDS ORDERED: MOM 30ML SUSPENSION UDC PO PRN (03:00)
[2021-05-09] MEDS ORDERED: MAALOX 30 ML SUSP *UDC PO PRN (03:00)
[2021-05-09] MEDS ORDERED: metroNIDAZOLE 750 MG in IV 1 EA IV SCH (03:00)
[2021-05-09 03:55] LABS: URIC ACID 6.6 MG/DL (3.5-7.2)
[2021-05-09] MEDS: LR 1,000 ML IV SCH ×2 (04:09→13:14)
[2021-05-09] MEDS: metroNIDAZOLE 500 MG in IV 1 EA IV SCH ×4 (04:09→22:00)
[2021-05-09 04:11] LABS: RSV AMPLIFICATION NEGATIVE (NEGATIVE)
--- NOTE | 2021-05-09 05:30 | HPEPDOC ---
[facility] Medical History & Physical Date of Admission May 09, 2021 Date of Service: May 09, 2021 Primary Care Physician: LANEY SOLIS MD [facility] Attending Physician: JOSSELYN NELSON MD History and Physical TIME OF SERVICE: 355am CHIEF COMPLAINT: diarrhea HISTORY OF PRESENT ILLNESS: Yesterday evening had one episode of non- bloody diarrhea associated with cramping lower abdominal pain, non-bloody emesis and profuse sweating. He felt dazed and was too weak to get up so he called his daughter who called EMS. He denied having any sick contacts, eating out at a restaurant or eating new foods. REVIEW OF SYSTEMS: 12-point review of systems negative except as listed in HPI PAST MEDICAL/ SURGICAL HISTORY: essential HTN, BPH, DLP, hemorrhoidectomy, carpal tunnel surgery, trigger finger surgery SOCIAL HISTORY: he is a former smoker, independent with his ADLS and IDALS & l glenda with his , grand-daughter, grand-daughters and 2 great grandchildren FAMILY HISTORY: reviewed, denied family medical history ALLERGIES: Please see below. HOME MEDICATIONS: Please see below. PHYSICAL EXAMINATION: Vital Signs Date Time Temp Pulse Resp B/P (MAP) Pulse Ox O2 Delivery O2 Flow Rate FiO2 05/08/21 22:45 105/59 (74) 05/08/21 22:47 70 95 05/08/21 22:53 96.1 18 Room Air GENERAL APPEARANCE: well nourished and developed HEENT: NCAT/ MMM&P CARDIOVASCULAR: RRR/NMRG/ no LE edema LUNGS: CTAB on RA ABDOMEN: contour obese/ soft & tender w palpation of lower abdomen MUSCULOSKELETAL: ROMIx 4 / has femoral line INTEGUMENT: not flushed or diaphoretic NEUROLOGICAL:CN 2-12 intact PSYCHIATRIC: speech not dysarthric LABORATORY DATA: IMAGING: CT abd/pelvis IMPRESSION: 1. Question of minimal nonspecific pancolitis. 2. There is borderline distention of the stomach which in view of a somewhat contracted gallbladder likely reflects recent ingestion. 3. Otherwise negative CT abdomen/pelvis. MICROBIOLOGY: respiratory panel neg ASSESSMENT: is an 80 yr old w essential HTN, BPH, & DLP who is admitted for management of pancolitis and RUBENS. PLAN: 1 Lake-colitis Cause TBD Doesnt meet SIRS & hypotension resolved GI panel neg Plan: admit to medical floor / Metronidazole 2 RUBENS Likely pre-renal Plan: monitor UOP / IVF / f/u renal panel, Ulytes for FENa or FEUrea / renal US / hold lisinopril 3 Macrocytic anemia Plan: f/u TSH, B12 and RBC folate / f/u repeat Hg this afternoon (if trending down day time team may consider dc heparin) 4 Essential HTN Plan: Amlodipine 5 BPH Plan: Finasteride & Finasteride DVT Px Heparin (Elio score = 4 = pharmacological px indicated) Dispo: home after at least 2 midnights stay (including ER time) Home Medications Scheduled Amlodipine Besylate (Amlodipine Besylate) 5 Mg Tab, 5 MG PO DAILY Finasteride (Finasteride) 5 Mg Tab, 5 MG PO DAILY Lisinopril (Lisinopril) 10 Mg Tablet, 10 MG PO DAILY Multivitamin,Therapeutic (Thera-Tabs) 1 Each Tablet, 1 TAB PO DAILY Omeprazole (Omeprazole) 20 Mg Capsule.dr, 20 MG PO DAILY Simvastatin (Simvastatin) 10 Mg Tab, 10 MG PO DAILY Tamsulosin HCl (Flomax) 0.4 Mg Capsule, 0.4 MG PO QPM Allergies Coded Allergies: Penicillins (Verified Allergy, Unknown, 02/21/19) A-FIB/CHADSVASC A-FIB History Current/History of A-Fib/PAF?: No Current PO Anticoag Therapy: No JOSSELYN NELSON MD May 09, 2021 05:30
[2021-05-09 05:43] LABS: HEMOGLOBIN 8.6 g/dl (13.5-17.5); MEAN CORPUSCULAR HEMOGLOBIN 34.1 pg (27.0-33.0); MEAN CORPUSCULAR HGB CONC 33.1 g/dl (32.0-36.5); MEAN CORPUSCULAR VOLUME 103.2 fl (80.0-96.0); PLATELET COUNT, AUTOMATED 221 10^3/uL (150-450); RED BLOOD COUNT 2.52 10^6/uL (4.30-6.10); WHITE BLOOD COUNT 9.3 10^3/uL (4.0-10.0)
[2021-05-09] MEDS: HEPARIN SOD (PORCINE) 5000UNITS/ML 1ML VIAL/SYRINGE SC SCH ×4 (06:00→21:26)
[2021-05-09 06:05] LABS: BLOOD UREA NITROGEN 21 MG/DL (7-18); CALCIUM LEVEL 7.6 MG/DL (8.8-10.2); CARBON DIOXIDE LEVEL 22 MEQ/L (21-32); CHLORIDE LEVEL 110 MEQ/L (98-107); CREATININE FOR GFR 1.17 MG/DL (0.70-1.30); GLOMERULAR FILTRATION RATE > 60.0 (>35); GLUCOSE, FASTING 114 MG/DL (70-100); POTASSIUM SERUM 4.2 MEQ/L (3.5-5.1); SODIUM LEVEL 140 MEQ/L (136-145)
[2021-05-09] MEDS: FINASTERIDE 5 MG TAB PO SCH (09:04)
[2021-05-09] MEDS: amLODIPine 5 MG TAB PO SCH (09:04)
--- NOTE | 2021-05-09 10:31 | REP ---
INDICATION: RUBENS. COMPARISON: Comparison is made with CT study of the abdomen pelvis May 09, 2021.. TECHNIQUE: Urinary tract sonography. FINDINGS: Scanning at the level of the urinary bladder demonstrates bladder wall trabeculation. No bladder mass lesion is seen.. Renal cortical echogenicity pattern is normal bilaterally and contours are smooth. There is no evidence hydronephrosis on either side. There are small bilateral renal cortical cysts. A 1.6 cm cyst is seen in the right mid kidney and a 0.9 cm cyst is seen in the lower pole on the left. The left kidney demonstrates a dromedary hump morphology which correlates with the CT findings. No renal mass lesion is observed.. The right kidney measures 10.6 x 6.1 x 4.0 cm. Left renal dimensions are 9.9 x 4.2 x 5.3 cm. IMPRESSION: Small bilateral renal cortical cysts. No evidence of hydronephrosis or renal mass lesion. Somewhat trabeculated urinary bladder wall.. <Electronically signed by Brian Pierre > 05/09/21 [id number]
[2021-05-09 13:21] LABS: CREATININE,RANDOM URINE 53.1 MG/DL; POTASSIUM RANDOM URINE 18.4 MEQ/L; TOTAL PROTEIN,RANDOM URINE 10.8 MG/DL (0.0-12.0)
[2021-05-09 16:21] LABS: FERRITIN 358 NG/ML (26-388); IRON (FE) 124 UG/DL (65-175); PERCENT SATURATION 61.7 % (19.7-50.0); TOTAL IRON BINDING CAPACITY 201 UG/DL (250-450)
[2021-05-09] MEDS ORDERED: [UNRECOGNIZED DRUG - REMARK] SC ONE (17:00)
[2021-05-09] MEDS: CIPROFLOXACIN 400 MG in IV 1 EA IV SCH (18:02)
[2021-05-09] MEDS ORDERED: TAMSULOSIN 0.4 MG CAP PO SCH (21:00)
[2021-05-10] VITALS (11 sets, daily range): BP systolic 117–154; BP diastolic 65–86
[2021-05-10] MEDS: LR 1,000 ML IV SCH ×2 (02:51→09:12)
[2021-05-10] MEDS: metroNIDAZOLE 500 MG in IV 1 EA IV SCH ×3 (04:31→16:00)
[2021-05-10] MEDS: CIPROFLOXACIN 400 MG in IV 1 EA IV SCH (05:43)
[2021-05-10] MEDS: HEPARIN SOD (PORCINE) 5000UNITS/ML 1ML VIAL/SYRINGE SC SCH ×2 (05:44→15:18)
[2021-05-10 06:53] LABS: HEMATOCRIT 29.4 % (42.0-52.0); HEMOGLOBIN 9.7 g/dl (13.5-17.5); PLATELET COUNT, AUTOMATED 206 10^3/uL (150-450); RED BLOOD COUNT 2.94 10^6/uL (4.30-6.10)
[2021-05-10 07:08] LABS: BLOOD UREA NITROGEN 12 MG/DL (7-18); CALCIUM LEVEL 7.6 MG/DL (8.8-10.2); CARBON DIOXIDE LEVEL 23 MEQ/L (21-32); CHLORIDE LEVEL 108 MEQ/L (98-107); CREATININE FOR GFR 0.94 MG/DL (0.70-1.30); GLOMERULAR FILTRATION RATE > 60.0 (>35); GLUCOSE, FASTING 101 MG/DL (70-100); POTASSIUM SERUM 3.8 MEQ/L (3.5-5.1); SODIUM LEVEL 137 MEQ/L (136-145)
[2021-05-10] MEDS ORDERED: BACI1CAP PO (07:29)
[2021-05-10] MEDS ORDERED: FLAG500T PO (07:29)
[2021-05-10] MEDS ORDERED: CIPR-249 PO (07:29)
[2021-05-10] MEDS: amLODIPine 5 MG TAB PO SCH (09:12)
[2021-05-10] MEDS: FINASTERIDE 5 MG TAB PO SCH (09:12)
[2021-05-10 10:59] LABS: VITAMIN B12 LEVEL 780 PG/ML (247-911)
--- NOTE | 2021-05-10 14:47 | IPN ---
PROGRESS NOTE DATE: 05/10/2021 SUBJECTIVE: Patient is seen and examined at the bedside. Chart has been reviewed. He denies any nausea, vomiting. He continues to have some abdominal discomfort rated at 3/10 after he eats. He continues to have frothy stools. GI panel is negative. Denies any dizziness, lightheadedness, near syncopal episode, shortness of breath, chest pain, pressure, tightness or palpitations. Status post 2 units of RBC transfusion yesterday with an increase in hemoglobin from 8.2 to 9.7. Denies melena, coffee ground emesis or hematemesis. OBJECTIVE: Vital signs: Temperature 98.3, pulse 83, respiratory rate 16, blood pressure 142/84, 94% on room air. General: Awake, alert, oriented to person, place and time, answering questions appropriately. He has no respiratory distress, no cyanosis, no use of respiratory accessory muscles. Lungs: Clear to auscultation, no wheezes, rhonchi or rales. Heart: S1 and S2 sinus rhythm. Abdomen: Soft, nontender, nondistended, positive bowel sounds. Extremities: No cyanosis or clubbing. LABORATORY DATA: White count 7, hemoglobin 9.7, hematocrit 29, platelet count 206. Sodium 137, potassium 3.8, chloride 108, bicarbonate 23, BUN 12, creatinine 0.94, glucose 101. Hemoccult stool positive. GI panel negative. IMAGING STUDIES: Renal ultrasound 05/11/2021: Small bilateral renal cortical cysts, no evidence of hydronephrosis or renal mass, trabeculated urinary bladder wall. CT abdomen and pelvis 05/08/2021: Question of minimal nonspecific pancolitis, borderline distention of the stomach in view of a somewhat contracted gallbladder and likely reflects recent ingestion otherwise negative. ASSESSMENT: This is an 80-year-old male with history of hypertension, dyslipidemia, BPH, hemorrhoidectomy, carpal tunnel surgery, trigger finger surgery, anemia with ring sideroblasts, follows at the [facility], former smoker, independent with ADLs presented with non-bloody diarrhea and crampy abdominal pain for the past 2 days. Patient was found to have pancolitis on CT abdomen and pelvis and admitted, given I.V. antibiotics Cipro and Flagyl. GI panel was negative. Patient was heme-positive. IMPRESSIONS/PLAN: 1. Pancolitis: Patient is tolerating his diet well without nausea, vomiting or worsening abdominal pain. He remains afebrile with normal white blood cell count. He is currently on intravenous ciprofloxacin and Flagyl and doing quite well. Lactated Ringers can be discontinued as he is tolerating his diet and no signs of further dehydration. Patient can be transitioned to oral Cipro and Flagyl as outpatient to complete a full 7 day course. 2. Anemia with ring sideroblasts and blood loss through the GI tract due to diarrhea: Patient usually receives Venofer given by Dr. Gilbert at the [facility] with goal hemoglobin of 11-12. Patient is status post I.V. Venofer last week and this week. He has been given 2 units of RBC transfusion with appropriate increase of hemoglobin from 8.2 to 9.7. This morning to reach his goal of 11-12 patient will receive 2 more units of RBCs today. If medically stable may be discharged home later today or in the morning if not cleared by physical therapy. 3. Hypertension: Patient's blood pressure ranges from 126-142 after medications are given. He is currently on Norvasc 5 mg daily, currently has no symptoms of uncontrolled hypertension therefore we will keep with the same home dose and home medication. 4. Dyslipidemia: Chronic. 5. BPH: No acute complaints of urinary retention. 6. History of hemorrhoidectomy: Most likely contributing to bloody, frothy stools. 7. Acute kidney injury: Resolved. Patient's lisinopril had been held. 8. DVT prophylaxis: Currently on heparin subcu. MTDD
[2021-05-10 16:16] LABS: HEMATOCRIT 32.2 % (42.0-52.0); HEMOGLOBIN 10.7 g/dl (13.5-17.5)
--- NOTE | 2021-05-10 16:46 | ECGEPIP ---
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
[2021-05-11 12:30] LABS: RBC FOLATE 1938 NG/ML (280-791)
--- NOTE | 2021-05-12 06:14 | DS.PDOC ---
Discharge Summary General Date of Admission May 09, 2021 at 02:58 Date of Discharge 2020 Discharge Summary DISCHARGE DIAGNOSES: Pancolitis Symptomatic Anemia Acute Blood Loss anemia H/o Sideroblastic Anemia Acute Kidney Injury Diarrhea BPH HTN Dyslipidemia DISCHARGE MEDS: SEE BELOW DISCHARGE INSTRUCTIONS: RIG HAND IN 1 WK. PCP IN 1WK ALLERGIES: SEE BELOW HOSPITAL COURSE: This is an 80-year-old male with history of hypertension, dyslipidemia, BPH, hemorrhoidectomy, carpal tunnel surgery, trigger finger surgery, anemia with ring sideroblasts, follows at the [facility], former smoker, independent with ADLs presented with non-bloody diarrhea and crampy abdominal pain for the past 2 days. Patient was found to have pancolitis on CT abdomen and pelvis and admitted, given I.V. antibiotics Cipro and Flagyl. GI panel was negative. Patient was heme-positive. Pancolitis: Patient is tolerating his diet well without nausea, vomiting or worsening abdominal pain. He remains afebrile with normal white blood cell count. He is currently on intravenous ciprofloxacin and Flagyl and doing quite well. Lactated Ringers can be discontinued as he is tolerating his diet and no signs of further dehydration. Patient can be transitioned to oral Cipro and Flagyl as outpatient to complete a full 7 day course. Anemia with ring sideroblasts and blood loss through the GI tract due to diarrhea: Patient usually receives Venofer given by Dr. Gilbert at the [facility] with goal hemoglobin of 11-12. Patient is status post I.V. Venofer last week and this week. He has been given 2 units of RBC transfusion with appropriate increase of hemoglobin from 8.2 to 9.7. This morning to reach his goal of 11-12 patient will receive 2 more units of RBCs today. If medically stable may be discharged home later today or in the morning if not cleared by physical therapy. S/P 4 units rbc transfused. Hypertension: Patient's blood pressure ranges from 126-142 after medications are given. He is currently on Norvasc 5 mg daily, currently has no symptoms of uncontrolled hypertension therefore we will keep with the same home dose and home medication. Dyslipidemia: Chronic. BPH: No acute complaints of urinary retention. History of hemorrhoidectomy: Most likely contributing to bloody, frothy stools. Acute kidney injury: Resolved. Patient's lisinopril had been held. DVT prophylaxis: Currently on heparin subcu. DISCHARGE PE: Vital signs: Temperature 98.3, pulse 83, respiratory rate 16, blood pressure 142/84, 94% on room air. General: Awake, alert, oriented to person, place and time, answering questions appropriately. He has no respiratory distress, no cyanosis, no use of respiratory accessory muscles. Lungs: Clear to auscultation, no wheezes, rhonchi or rales. Heart: S1 and S2 sinus rhythm. Abdomen: Soft, nontender, nondistended, positive bowel sounds. Extremities: No cyanosis or clubbing. LABORATORY DATA: White count 7, hemoglobin 9.7, hematocrit 29, platelet count 206. Sodium 137, potassium 3.8, chloride 108, bicarbonate 23, BUN 12, creatinine 0.94, glucose 101. Hemoccult stool positive. GI panel negative. IMAGING STUDIES: Renal ultrasound 05/11/2021: Small bilateral renal cortical cysts, no evidence of hydronephrosis or renal mass, trabeculated urinary bladder wall. CT abdomen and pelvis 05/08/2021: Question of minimal nonspecific pancolitis, borderline distention of the stomach in view of a somewhat contracted gallbladder and likely reflects recent ingestion otherwise negative. TIME SPENT ON DISCHARGE: 30 MIN Vital Signs/I&Os Vital Signs Date Time Temp Pulse Resp B/P (MAP) Pulse Ox O2 Delivery O2 Flow Rate FiO2 05/10/21 14:23 98.1 81 18 122/67 96 Room Air Laboratory Data Labs 24H Laboratory Tests 2 05/11/21 09:23: Lab Scanned Report Transfusion Record Microbiology Microbiology 05/09/21 Stool Occult Blood (LEILA) - Final, Complete 05/09/21 Stool Occult Blood (LEILA) - Final, Complete 05/08/21 Gastrointestinal Tract Panel (PCR) - Final, Complete Discharge Medications Scheduled Amlodipine Besylate (Amlodipine Besylate) 5 Mg Tab, 5 MG PO DAILY, (Reported) Bacillus Coagulans (Bacid with Lactospore) 1 Each Capsule, 1 CAP PO [facility] Ciprofloxacin HCl (Cipro) 500 Mg Tablet, 500 MG PO BID Ciprofloxacin HCl (Cipro) 500 Mg Tablet, 500 MG PO BID Finasteride (Finasteride) 5 Mg Tab, 5 MG PO DAILY, (Reported) Lisinopril (Lisinopril) 10 Mg Tablet, 10 MG PO DAILY, (Reported) Metronidazole (Flagyl) 500 Mg Tablet, 500 MG PO BID Multivitamin,Therapeutic (Thera-Tabs) 1 Each Tablet, 1 TAB PO DAILY, (Reported) Omeprazole (Omeprazole) 20 Mg Capsule.dr, 20 MG PO DAILY, (Reported) Simvastatin (Simvastatin) 10 Mg Tab, 10 MG PO DAILY, (Reported) Tamsulosin HCl (Flomax) 0.4 Mg Capsule, 0.4 MG PO QPM, (Reported) Allergies Coded Allergies: Penicillins (Verified Allergy, Unknown, 02/21/19) VEE ADKINS MD May 12, 2021 06:14
== END 2021-05-10 17:45 | disposition home or self-care (01) | DRG 386 ==
LOC: M ED 22:32 → M ED INP 05-09 02:58 → ENRESERV 05-09 04:19 → M PCU 05-09 04:59 → M MS5PR 05-09 12:47
PROVIDERS: ADMIT Internal Medicine; ATTEND General Practice
PROC: 30233N1 Transfusion of Nonautologous Red Blood Cells into Peripheral Vein, Percutaneous Approach (ICD-10-PCS; principal; 2021-05-09)
DX: K51.00 Ulcerative (chronic) pancolitis without complications (principal); N17.9 Acute kidney failure, unspecified; D62 Acute posthemorrhagic anemia; I10 Essential (primary) hypertension; N40.0 Benign prostatic hyperplasia without lower urinary tract symptoms; D53.9 Nutritional anemia, unspecified; E78.5 Hyperlipidemia, unspecified; Z87.891 Personal history of nicotine dependence; Z79.899 Other long term (current) drug therapy; Z88.0 Allergy status to penicillin; D64.3 Other sideroblastic anemias

== ENCOUNTER → 2021-08-12 | Outpatient (CLI) | payer MEDICARE ==
[~2021-08-12] MED LIST changes: +BACI1CAP PO; +CIPR-249 PO; +FLAG500T PO; +LISI10TA22 PO; +OMEP40CA4 PO; -OMEP40CA97 PO; +THERTAB52 PO
== END ==
LOC: M LABSMTC 10:22
PROVIDERS: ATTEND Anesthesiology
DX: Z01.818 Encounter for other preprocedural examination (principal); Z11.52 Encounter for screening for COVID-19

== ENCOUNTER → 2021-08-17 | Day surgery (SDC) | payer MEDICARE ==
[~2021-08-17] VITALS: Ht 182.9 cm; Wt 88.4 kg
[~2021-08-17] MED LIST changes: +LIDOCAINE 2% 100MG/5ML SDV (FOR ANES.) As Ordered ONE; +NS 1,000 ML IV ONE; +propofoL 200 MG/20 ML VIAL As Ordered ONE; +propofoL 500 MG/50 ML VIAL As Ordered ONE
--- NOTE | 2021-08-17 13:47 | ROOR ---
Patient Name: Tony Musa Procedure Date: 08/17/2021 12:48 PM Date of : 1940 Age: 80 Room: [facility] Gender: Male Note Status: Finalized Procedure: Upper GI endoscopy Indications: Epigastric abdominal pain, Heme positive stool Providers: Toby Turcios MD Referring MD: Larry Diaz MD Requesting Provider: Medicines: Monitored Anesthesia Care Complications: No immediate complications. Procedure: Pre-Anesthesia Assessment: - Prior to the procedure, a History and Physical was performed, and patient medications and allergies were reviewed. The patient is competent. The risks and benefits of the procedure and the sedation options and risks were discussed with the patient. All questions were answered and informed consent was obtained. Patient identification and proposed procedure were verified by the physician, the nurse and the time piece repairer in the procedure room. Mental Status Examination: normal. Airway Examination: normal oropharyngeal airway and neck mobility. Prophylactic Antibiotics: The patient does not require prophylactic antibiotics. Prior Anticoagulants: The patient has taken no previous anticoagulant or antiplatelet agents. ASA Grade Assessment: III - A patient with severe systemic disease. After reviewing the risks and benefits, the patient was deemed in satisfactory condition to undergo the procedure. The anesthesia plan was to use monitored anesthesia care (MAC). Immediately prior to administration of medications, the patient was re-assessed for adequacy to receive sedatives. The heart rate, respiratory rate, oxygen saturations, blood pressure, adequacy of pulmonary ventilation, and response to care were monitored throughout the procedure. The physical status of the patient was re-assessed after the procedure. The Endoscope was introduced through the mouth, and advanced to the second part of duodenum. The upper GI endoscopy was accomplished without difficulty. The patient tolerated the procedure well. Findings: The examined esophagus was normal. The entire examined stomach was normal. The first portion of the duodenum and second portion of the duodenum were normal. Impression: - Normal esophagus. - Normal stomach. - Normal first portion of the duodenum and second portion of the duodenum. - No specimens collected. Recommendation: - Discharge patient to home. - Resume previous diet. - Continue present medications. Procedure Code(s): --- Professional --- 96228, Esophagogastroduodenoscopy, flexible, transoral; diagnostic, including collection of specimen(s) by brushing or washing, when performed (separate procedure) Diagnosis Code(s): --- Professional --- R10.13, Epigastric pain R19.5, Other fecal abnormalities CPT copyright 2019 [employer]. All rights reserved. The codes documented in this report are preliminary and upon oven technician review may be revised to meet current compliance requirements. Toby Turcios MD Toby Turcios MD 08/17/2021 1:47:39 PM Electronically signed by Toby Turcios MD Number of Addenda: 0 Note Initiated On: 08/17/2021 12:48 PM Estimated Blood Loss: Estimated blood loss: none.
[2021-08-17 14:07] VITALS: BP 128/68
--- NOTE | 2021-08-17 14:29 | ROOR ---
Patient Name: Tony Musa Procedure Date: 08/17/2021 12:48 PM Date of : 1940 Age: 80 Room: [facility] Gender: Male Note Status: Finalized Procedure: Colonoscopy Indications: Last colonoscopy: December 2016, Epigastric abdominal pain, Heme positive stool Providers: Toby Turcios MD Referring MD: Larry Diaz MD Requesting Provider: Medicines: Monitored Anesthesia Care Complications: No immediate complications. Procedure: Pre-Anesthesia Assessment: - Prior to the procedure, a History and Physical was performed, and patient medications and allergies were reviewed. The patient is competent. The risks and benefits of the procedure and the sedation options and risks were discussed with the patient. All questions were answered and informed consent was obtained. Patient identification and proposed procedure were verified by the physician, the nurse and the route driver in the procedure room. Mental Status Examination: alert and oriented. Airway Examination: normal oropharyngeal airway and neck mobility. Prophylactic Antibiotics: The patient does not require prophylactic antibiotics. Prior Anticoagulants: The patient has taken no previous anticoagulant or antiplatelet agents. ASA Grade Assessment: III - A patient with severe systemic disease. After reviewing the risks and benefits, the patient was deemed in satisfactory condition to undergo the procedure. The anesthesia plan was to use monitored anesthesia care (MAC). Immediately prior to administration of medications, the patient was re-assessed for adequacy to receive sedatives. The heart rate, respiratory rate, oxygen saturations, blood pressure, adequacy of pulmonary ventilation, and response to care were monitored throughout the procedure. The physical status of the patient was re-assessed after the procedure. The Colonoscope was introduced through the anus and advanced to the cecum, identified by appendiceal orifice and ileocecal valve. The colonoscopy was somewhat difficult due to significant looping. The patient tolerated the procedure well. The quality of the bowel preparation was good. Findings: The perianal and digital rectal examinations were normal. A few small-mouthed diverticula were found in the sigmoid colon and descending colon. The exam was otherwise without abnormality. Impression: - Diverticulosis in the sigmoid colon and in the descending colon. - The examination was otherwise normal. - No specimens collected. Recommendation: - Discharge patient to home. - Resume previous diet. - Continue present medications. Procedure Code(s): --- Professional --- 38293, Colonoscopy, flexible; diagnostic, including collection of specimen(s) by brushing or washing, when performed (separate procedure) Diagnosis Code(s): --- Professional --- R10.13, Epigastric pain R19.5, Other fecal abnormalities K57.30, Diverticulosis of large intestine without perforation or abscess without bleeding CPT copyright 2019 [employer]. All rights reserved. The codes documented in this report are preliminary and upon manager sound review may be revised to meet current compliance requirements. Toby Turcios MD Toby Turcios MD 08/17/2021 2:29:18 PM Electronically signed by Toby Turcios MD Number of Addenda: 0 Note Initiated On: 08/17/2021 12:48 PM Estimated Blood Loss: Estimated blood loss: none.
== END | disposition home or self-care (01) ==
LOC: M OPP 10:08
PROVIDERS: ATTEND Surgery
DX: R10.13 Epigastric pain (principal); R19.5 Other fecal abnormalities; Z86.010 Personal history of colon polyps; K57.30 Diverticulosis of large intestine without perforation or abscess without bleeding; I10 Essential (primary) hypertension; E78.5 Hyperlipidemia, unspecified; K21.9 Gastro-esophageal reflux disease without esophagitis; M19.90 Unspecified osteoarthritis, unspecified site; Z88.0 Allergy status to penicillin; Z79.899 Other long term (current) drug therapy; Z83.6 Family history of other diseases of the respiratory system; Z82.49 Family history of ischemic heart disease and other diseases of the circulatory system

== ENCOUNTER → 2022-01-31 | Outpatient (REF) | payer MEDICARE ==
[~2022-01-31] MED LIST changes: -LIDOCAINE 2% 100MG/5ML SDV (FOR ANES.) As Ordered ONE; -NS 1,000 ML IV ONE; +OMEP-173 PO; -OMEP-218 PO; -propofoL 200 MG/20 ML VIAL As Ordered ONE; -propofoL 500 MG/50 ML VIAL As Ordered ONE
[2022-01-31 13:28] LABS: APPEARANCE, URINE HAZY (CLEAR); BACTERIA, URINE AUTO 1+ (NEGATIVE); BILIRUBIN, URINE AUTO NEGATIVE (NEGATIVE); BLOOD, URINE BLOOD NEGATIVE (NEGATIVE); COLOR, URINE YELLOW (YELLOW); GLUCOSE, URINE (UA) AUTO NEGATIVE (NEGATIVE); KETONE, URINE AUTO NEGATIVE (NEGATIVE); LEUKOCYTE ESTERASE, URINE AUTO 3+ (NEGATIVE); MUCUS, URINE SMALL (NEGATIVE); NITRITE, URINE AUTO NEGATIVE (NEGATIVE); PROTEIN, URINE AUTO NEGATIVE (NEGATIVE); RBC, URINE AUTO 3 /HPF (0-3); SQUAMOUS EPITHELIAL CELL UR AU 0 /HPF (0-6); UROBILINOGEN, URINE AUTO 0.2 mg/dL (0.0-2.0); WBC, URINE AUTO TNTC /HPF (0-3)
== END ==
LOC: M SMT 13:01
PROVIDERS: ATTEND Physician Assistant
DX: R30.0 Dysuria (principal)

== ENCOUNTER → 2022-03-02 | Outpatient (CLI) | payer MEDICARE | LOC: M RAD 07:24 | PROVIDERS: ATTEND Family Medicine | DX: R05.9 Cough, unspecified (principal) ==

== ENCOUNTER → 2022-04-26 | Outpatient (CLI) | payer MEDICARE ==
[2022-04-26 13:13] LABS: ALBUMIN 3.6 GM/DL (3.2-5.2); ALT/SGPT 23 U/L (12-78); BILIRUBIN,TOTAL 0.5 MG/DL (0.2-1.0); BLOOD UREA NITROGEN 24 MG/DL (7-18); CALCIUM LEVEL 8.7 MG/DL (8.8-10.2); CARBON DIOXIDE LEVEL 28 MEQ/L (21-32); CHLORIDE LEVEL 106 MEQ/L (98-107); CHOLESTEROL LEVEL 130 MG/DL (<200); CREATININE FOR GFR 1.14 MG/DL (0.70-1.30); GLOMERULAR FILTRATION RATE > 60.0 (>35); GLUCOSE, FASTING 125 MG/DL (70-100); HDL CHOLESTEROL 71 MG/DL (>40); LDL CHOLESTEROL 46 MG/DL (<100); NON-HDL-C 59 MG/DL; POTASSIUM SERUM 4.7 MEQ/L (3.5-5.1); SODIUM LEVEL 137 MEQ/L (136-145); TOTAL PROTEIN 6.5 GM/DL (6.4-8.2); TRIGLYCERIDES LEVEL 66 MG/DL (<150)
== END ==
LOC: M WUC 09:39
PROVIDERS: ATTEND Family Medicine
DX: I10 Essential (primary) hypertension (principal)

== ENCOUNTER → 2022-05-17 | Outpatient (CLI) | payer MEDICARE | LOC: M RAD 15:07 | PROVIDERS: ATTEND Family Medicine | DX: R06.02 Shortness of breath (principal) ==

== ENCOUNTER → 2022-05-24 | Outpatient (REF) | payer MEDICARE ==
[2022-05-24 13:23] LABS: APPEARANCE, URINE HAZY (CLEAR); BACTERIA, URINE AUTO 1+ (NEGATIVE); BILIRUBIN, URINE AUTO NEGATIVE (NEGATIVE); BLOOD, URINE BLOOD 1+ (NEGATIVE); COLOR, URINE YELLOW (YELLOW); GLUCOSE, URINE (UA) AUTO NEGATIVE (NEGATIVE); KETONE, URINE AUTO NEGATIVE (NEGATIVE); LEUKOCYTE ESTERASE, URINE AUTO 3+ (NEGATIVE); MUCUS, URINE SMALL (NEGATIVE); NITRITE, URINE AUTO NEGATIVE (NEGATIVE); PROTEIN, URINE AUTO NEGATIVE (NEGATIVE); RBC, URINE AUTO 4 /HPF (0-3); SPECIFIC GRAVITY URINE AUTO 1.012 (1.002-1.035); SQUAMOUS EPITHELIAL CELL UR AU 0 /HPF (0-6); UROBILINOGEN, URINE AUTO 0.2 mg/dL (0.0-2.0); WBC, URINE AUTO 169 /HPF (0-3)
== END ==
LOC: M SMT 12:52
PROVIDERS: ATTEND Physician Assistant
DX: R30.0 Dysuria (principal)

== ENCOUNTER → 2022-05-31 | Outpatient (REF) | payer MEDICARE | LOC: M LAB REF 09:53 | PROVIDERS: ATTEND Family Medicine | DX: R06.02 Shortness of breath (principal); E07.9 Disorder of thyroid, unspecified ==

== ENCOUNTER → 2022-07-26 | Outpatient (CLI) | payer MEDICARE ==
[2022-07-26 09:58] LABS: HEMATOCRIT 30.7 % (42.0-52.0); HEMOGLOBIN 10.3 g/dl (13.5-17.5); MEAN CORPUSCULAR HEMOGLOBIN 34.2 pg (27.0-33.0); MEAN CORPUSCULAR HGB CONC 33.6 g/dl (32.0-36.5); PLATELET COUNT, AUTOMATED 254 10^3/uL (150-450); RED BLOOD COUNT 3.01 10^6/uL (4.30-6.10)
[2022-07-26 10:52] LABS: ALBUMIN 3.5 GM/DL (3.2-5.2); ALT/SGPT 16 U/L (12-78); BILIRUBIN,TOTAL 0.4 MG/DL (0.2-1.0); BLOOD UREA NITROGEN 32 MG/DL (7-18); CALCIUM LEVEL 8.8 MG/DL (8.8-10.2); CARBON DIOXIDE LEVEL 28 MEQ/L (21-32); CHLORIDE LEVEL 109 MEQ/L (98-107); CHOLESTEROL LEVEL 136 MG/DL (<200); CHOLESTEROL RISK RATIO 2.229 (<5); CREATININE FOR GFR 1.14 MG/DL (0.70-1.30); GLOMERULAR FILTRATION RATE > 60.0 (>35); GLUCOSE, FASTING 88 MG/DL (70-100); HDL CHOLESTEROL 61 MG/DL (>40); LDL CHOLESTEROL 68 MG/DL (<100); NON-HDL-C 75 MG/DL; POTASSIUM SERUM 4.4 MEQ/L (3.5-5.1); SODIUM LEVEL 142 MEQ/L (136-145); TOTAL PROTEIN 6.5 GM/DL (6.4-8.2); TRIGLYCERIDES LEVEL 37 MG/DL (<150)
== END ==
LOC: M WUC 08:02
PROVIDERS: ATTEND Family Medicine
DX: I10 Essential (primary) hypertension (principal)

== ENCOUNTER → 2023-07-17 | Outpatient (REF) | payer MEDICARE ==
[~2023-07-17] MED LIST changes: +ALBU6.7H6 INH; +CEPH500C PO; +ROSU20TA61 PO
[2023-07-17 14:20] LABS: APPEARANCE, URINE CLOUDY (CLEAR); BACTERIA, URINE AUTO 2+ (NEGATIVE); BILIRUBIN, URINE AUTO NEGATIVE (NEGATIVE); BLOOD, URINE BLOOD 1+ (NEGATIVE); COLOR, URINE AMBER (YELLOW); GLUCOSE, URINE (UA) AUTO NEGATIVE (NEGATIVE); KETONE, URINE AUTO NEGATIVE (NEGATIVE); LEUKOCYTE ESTERASE, URINE AUTO 3+ (NEGATIVE); NITRITE, URINE AUTO NEGATIVE (NEGATIVE); PROTEIN, URINE AUTO 2+ mg/dL (NEGATIVE); RBC, URINE AUTO 22 /HPF (0-3); SPECIFIC GRAVITY URINE AUTO 1.012 (1.002-1.035); SQUAMOUS EPITHELIAL CELL UR AU 0 /HPF (0-6); UROBILINOGEN, URINE AUTO 0.2 mg/dL (0.0-2.0); WBC, URINE AUTO TNTC /HPF (0-3)
== END ==
LOC: M SMT 13:24
PROVIDERS: ATTEND Physician Assistant
DX: R30.0 Dysuria (principal)

== ENCOUNTER 2023-09-30 18:25 | Observation (INO) | payer MEDICARE ==
[~2023-09-30] VITALS: Ht 182.9 cm; Wt 90.5 kg
[2023-09-30 19:46] LABS: BASO % 0.4 % (0.0-1.0); EOS # 0.1 10^3/uL (0.0-0.5); EOS % 0.9 % (0.0-3.0); HEMATOCRIT 29.5 % (42.0-52.0); HEMOGLOBIN 9.9 g/dl (13.5-17.5); LYMPH # 0.7 10^3/uL (1.5-5.0); LYMPH % 7.2 % (24.0-44.0); MEAN CORPUSCULAR HEMOGLOBIN 33.6 pg (27.0-33.0); MEAN CORPUSCULAR HGB CONC 33.6 g/dl (32.0-36.5); MONO # 0.4 10^3/uL (0.0-0.8); MONO % 3.8 % (2.0-8.0); NEUTROPHILS # 8.6 10^3/uL (1.5-8.5); NEUTROPHILS % 87.4 % (36.0-66.0); PLATELET COUNT, AUTOMATED 244 10^3/uL (150-450); RED BLOOD COUNT 2.95 10^6/uL (4.30-6.10); WHITE BLOOD COUNT 9.9 10^3/uL (4.0-10.0)
[2023-09-30 19:58] LABS: INR 1.18; PROTHROMBIN TIME 14.6 SECONDS (12.5-14.5)
[2023-09-30 20:10] LABS: CK-MB VALUE MASS 2.7 NG/ML (<3.6)
[2023-09-30 20:11] LABS: ALBUMIN 3.3 G/DL (3.2-5.2); BILIRUBIN,DIRECT 0.2 MG/DL (<0.4); BILIRUBIN,TOTAL 0.6 MG/DL (0.3-1.2); CALCIUM LEVEL 8.1 MG/DL (8.3-10.6); CREATININE FOR GFR 1.31 MG/DL (0.70-1.30); GLOMERULAR FILTRATION RATE 55.4 (>35); POTASSIUM SERUM 4.9 MMOL/L (3.5-5.1); TOTAL PROTEIN 5.7 G/DL (5.7-8.2)
[2023-09-30 20:14] LABS: THYROXINE (T4) 6.1 UG/DL (4.5-10.9)
[2023-09-30 20:15] LABS: THYROID STIMULATING HORMONE 1.909 uIU/ML (0.55-4.78)
[2023-09-30 20:23] LABS: MB/CK RELATIVE INDEX 6.27 (< OR =4)
[2023-09-30] MEDS ORDERED: ISOVUE-370 76% 100ML VIAL As Ordered ONE (21:10)
[2023-09-30 21:14] LABS: CK-MB VALUE MASS 2.5 NG/ML (<3.6)
[2023-09-30 21:15] LABS: CPK CREATINE PHOSPHOKINASE 34 U/L (46-171); MB/CK RELATIVE INDEX 7.35 (< OR =4)
[2023-09-30] MEDS ORDERED: IPRATROPIUM 0.5MG/ALBUTEROL 2.5MG INH SOL UD 3ML (DUONEB) NEB ONE (23:05)
[2023-09-30] MEDS ORDERED: ALBUTEROL SULFATE 2.5MG/0.5ML INH NEB SOLN NEB PRN (23:20)
[2023-09-30] MEDS ORDERED: FERR324T21 PO (23:20)
[2023-09-30] MEDS ORDERED: HOME MED LIST COMPLETE! XX SCH (23:25)
[2023-09-30 23:56] LABS: ABG BASE EXCESS -3.4 (-2.0-2.0); ABG HCO3 21.3 MMOL/L (22.0-26.0); ABG O2 SATURATION 90.8 % (95.0-99.0); ABG PARTIAL PRESSURE CO2 36.9 mmHg (35.0-45.0); ABG PARTIAL PRESSURE O2 63.5 mmHg (75.0-100.0); ABG STANDARD HCO3 21.5 MMOL/L. (22.0-26.0); ABG TOTAL CO2 22.4 MMOL/L (23.0-31.0); ABG pH (ARTERIAL) 7.379 UNITS (7.350-7.450)
[2023-10-01 00:06] LABS: PROCALCITONIN <0.04 ng/ml
[2023-10-01] MEDS ORDERED: ONDANSETRON 4MG 2ML VIAL IV PRN (00:20)
[2023-10-01 00:34] VITALS: BP 131/70; TEMP 97.9; O2SAT 93
[2023-10-01] MEDS: methylPREDNISolone 125MG 2ML VIAL IV SCH ×2 (00:57→08:35)
[2023-10-01] MEDS: NS 1,000 ML IV SCH ×2 (00:57→08:35)
[2023-10-01] MEDS ORDERED: LevoFLOXacin IV 750 MG in IV 1 EA IV SCH (01:00)
[2023-10-01] MEDS: IPRATROPIUM 0.5MG/ALBUTEROL 2.5MG INH SOL UD 3ML (DUONEB) NEB SCH ×4 (01:22→19:06)
[2023-10-01 04:00] VITALS: BP 117/63; TEMP 97.9; O2SAT 90
[2023-10-01 05:58] LABS: HEMATOCRIT 28.5 % (42.0-52.0); HEMOGLOBIN 9.7 g/dl (13.5-17.5); MEAN CORPUSCULAR HEMOGLOBIN 33.8 pg (27.0-33.0); MEAN CORPUSCULAR VOLUME 99.3 fl (80.0-96.0); PLATELET COUNT, AUTOMATED 247 10^3/uL (150-450); RED BLOOD COUNT 2.87 10^6/uL (4.30-6.10); WHITE BLOOD COUNT 6.7 10^3/uL (4.0-10.0)
[2023-10-01 06:25] LABS: ALBUMIN 3.4 G/DL (3.2-5.2); BILIRUBIN,TOTAL 0.6 MG/DL (0.3-1.2); CALCIUM LEVEL 8.4 MG/DL (8.3-10.6); CREATININE FOR GFR 1.3 MG/DL (0.70-1.30); GLOMERULAR FILTRATION RATE 55.9 (>35); POTASSIUM SERUM 4.8 MMOL/L (3.5-5.1); TOTAL PROTEIN 5.9 G/DL (5.7-8.2)
[2023-10-01 08:30] VITALS: BP_SYST 136; BP_SYST 137; BP_SYST 138; BP_DIAS 72; BP_DIAS 73; BP_DIAS 74
[2023-10-01] MEDS ORDERED: lisinopriL 5 MG TAB PO SCH (09:00)
[2023-10-01] MEDS ORDERED: PANTOPRAZOLE 40MG TAB (PROTONIX) PO SCH (09:00)
[2023-10-01 10:00] VITALS: BP 119/57; TEMP 97.9; O2SAT 95
[2023-10-01] MEDS ORDERED: FUROSEMIDE 20MG/2ML VIAL IV ONE (12:05)
[2023-10-01] MEDS: FERROUS GLUCONATE 324 MG TAB PO SCH (12:38)
[2023-10-01] MEDS: FINASTERIDE 5MG TAB PO SCH (12:38)
[2023-10-01 14:00] VITALS: BP 133/71; TEMP 98.6; O2SAT 96
[2023-10-01 19:13] LABS: APPEARANCE, URINE CLEAR (CLEAR); BACTERIA, URINE AUTO NEGATIVE (NEGATIVE); BILIRUBIN, URINE AUTO NEGATIVE (NEGATIVE); BLOOD, URINE BLOOD NEGATIVE (NEGATIVE); COLOR, URINE YELLOW (YELLOW); GLUCOSE, URINE (UA) AUTO NEGATIVE (NEGATIVE); KETONE, URINE AUTO NEGATIVE (NEGATIVE); LEUKOCYTE ESTERASE, URINE AUTO NEGATIVE (NEGATIVE); NITRITE, URINE AUTO NEGATIVE (NEGATIVE); PROTEIN, URINE AUTO NEGATIVE (NEGATIVE); RBC, URINE AUTO 0 /HPF (0-3); SPECIFIC GRAVITY URINE AUTO 1.025 (1.002-1.035); SQUAMOUS EPITHELIAL CELL UR AU 1 /HPF (0-6); UROBILINOGEN, URINE AUTO 0.2 mg/dL (0.0-2.0); WBC, URINE AUTO 0 /HPF (0-3)
[2023-10-01] MEDS: ROSUVASTATIN 10 MG TAB (CRESTOR) PO SCH (19:51)
[2023-10-01] MEDS: HEPARIN SOD (PORCINE) 5000UNITS/ML 1ML VIAL/SYRINGE SQ SCH (19:51)
[2023-10-01] MEDS: TAMSULOSIN 0.4 MG CAP PO SCH (19:51)
[2023-10-01 20:00] VITALS: BP 132/74; TEMP 97.9; O2SAT 93
[2023-10-01] MEDS: ACETAMINOPHEN TAB 650MG DOSE (2X325MG) PO PRN (23:03)
[2023-10-02 00:09] VITALS: BP 129/73; TEMP 98.1; O2SAT 96
[2023-10-02] MEDS: IPRATROPIUM 0.5MG/ALBUTEROL 2.5MG INH SOL UD 3ML (DUONEB) NEB SCH ×4 (01:10→19:35)
[2023-10-02 04:18] VITALS: BP 138/79; TEMP 97.5; O2SAT 96
[2023-10-02 06:01] LABS: HEMATOCRIT 25.3 % (42.0-52.0); HEMOGLOBIN 8.6 g/dl (13.5-17.5); MEAN CORPUSCULAR HEMOGLOBIN 33.6 pg (27.0-33.0); MEAN CORPUSCULAR VOLUME 98.8 fl (80.0-96.0); PLATELET COUNT, AUTOMATED 235 10^3/uL (150-450); RED BLOOD COUNT 2.56 10^6/uL (4.30-6.10); WHITE BLOOD COUNT 15.6 10^3/uL (4.0-10.0)
[2023-10-02 06:24] LABS: ALBUMIN 3.5 G/DL (3.2-5.2); BILIRUBIN,TOTAL 0.5 MG/DL (0.3-1.2); CALCIUM LEVEL 8.6 MG/DL (8.3-10.6); CREATININE FOR GFR 1.47 MG/DL (0.70-1.30); GLOMERULAR FILTRATION RATE 48.5 (>35); POTASSIUM SERUM 4.7 MMOL/L (3.5-5.1); TOTAL PROTEIN 5.8 G/DL (5.7-8.2)
[2023-10-02] MEDS: predniSONE 20 MG TAB PO SCH (08:17)
[2023-10-02] MEDS: FERROUS GLUCONATE 324 MG TAB PO SCH (08:17)
[2023-10-02] MEDS: OMEPRAZOLE 20MG CAP PO SCH (08:17)
[2023-10-02] MEDS: FINASTERIDE 5MG TAB PO SCH (08:17)
[2023-10-02] MEDS: amLODIPine 5 MG TAB PO SCH (08:17)
[2023-10-02] MEDS: HEPARIN SOD (PORCINE) 5000UNITS/ML 1ML VIAL/SYRINGE SQ SCH (08:18)
[2023-10-02 10:00] VITALS: BP 136/78; TEMP 97; O2SAT 95
[2023-10-02 14:00] VITALS: BP_SYST 128; BP_DIAS 72; BP_DIAS 76; TEMP 98.1; O2SAT 96
[2023-10-02 18:00] VITALS: BP 128/70; TEMP 97; O2SAT 96
[2023-10-02] MEDS: ACETAMINOPHEN TAB 650MG DOSE (2X325MG) PO PRN (20:12)
[2023-10-02] MEDS: ROSUVASTATIN 10 MG TAB (CRESTOR) PO SCH (20:12)
[2023-10-02] MEDS: TAMSULOSIN 0.4 MG CAP PO SCH (20:12)
[2023-10-02] MEDS ORDERED: LevoFLOXacin 750 MG TABLET PO SCH (21:00)
[2023-10-02 21:35] VITALS: BP 129/72; TEMP 97.9; O2SAT 93
[2023-10-03 02:00] VITALS: BP 133/66; TEMP 98.8; O2SAT 93
[2023-10-03] MEDS: IPRATROPIUM 0.5MG/ALBUTEROL 2.5MG INH SOL UD 3ML (DUONEB) NEB SCH ×2 (02:02→07:02)
[2023-10-03 05:30] VITALS: BP 131/76; TEMP 99; O2SAT 94
[2023-10-03 06:06] LABS: HEMATOCRIT 26.9 % (42.0-52.0); MEAN CORPUSCULAR HEMOGLOBIN 33.6 pg (27.0-33.0); MEAN CORPUSCULAR HGB CONC 33.5 g/dl (32.0-36.5); MEAN CORPUSCULAR VOLUME 100.4 fl (80.0-96.0); PLATELET COUNT, AUTOMATED 223 10^3/uL (150-450); RED BLOOD COUNT 2.68 10^6/uL (4.30-6.10); WHITE BLOOD COUNT 10.7 10^3/uL (4.0-10.0)
[2023-10-03 06:30] LABS: ALBUMIN 3.4 G/DL (3.2-5.2); ALKALINE PHOSPHATASE 66 U/L (46-116); ALT/SGPT 17 U/L (7.0-40); AST/SGOT 17 U/L (<34); BILIRUBIN,TOTAL 0.5 MG/DL (0.3-1.2); BLOOD UREA NITROGEN 35 MG/DL (9-23); CALCIUM LEVEL 9.1 MG/DL (8.3-10.6); CARBON DIOXIDE LEVEL 24 MMOL/L (20-31); CHLORIDE LEVEL 104 MMOL/L (98-107); CREATININE FOR GFR 1.17 MG/DL (0.70-1.30); GLOMERULAR FILTRATION RATE > 60.0 (>35); GLUCOSE, FASTING 90 MG/DL (74-106); POTASSIUM SERUM 4.4 MMOL/L (3.5-5.1); SODIUM LEVEL 138 MMOL/L (136-145); TOTAL PROTEIN 5.8 G/DL (5.7-8.2)
[2023-10-03] MEDS: predniSONE 20 MG TAB PO SCH (08:23)
[2023-10-03 08:24] VITALS: BP 131/75
[2023-10-03] MEDS: OMEPRAZOLE 20MG CAP PO SCH (08:24)
[2023-10-03] MEDS: amLODIPine 5 MG TAB PO SCH (08:24)
[2023-10-03] MEDS: FINASTERIDE 5MG TAB PO SCH (08:24)
[2023-10-03] MEDS: FERROUS GLUCONATE 324 MG TAB PO SCH (08:24)
[2023-10-03] MEDS ORDERED: ENOXAPARIN 40MG/0.4ML SYRINGE (J1650 PER 10MG) SC SCH (09:00)
[2023-10-03 10:00] VITALS: BP 109/74; TEMP 96.6; O2SAT 96
== END 2023-10-03 13:33 | disposition home or self-care (01) ==
LOC: EDBD 18:25 → M ED 18:25 → INTOOBSV 23:17 → M ED INP 23:17 → M MSPAV 10-01 00:39
PROVIDERS: ADMIT Family Medicine; ATTEND Student in an Organized Health Care Education/Training Program
DX: R55 Syncope and collapse (principal); I27.20 Pulmonary hypertension, unspecified; J44.1 Chronic obstructive pulmonary disease with (acute) exacerbation; R53.1 Weakness; R05.8 Other specified cough; W07.XXXA Fall from chair, initial encounter; Y92.018 Other place in single-family (private) house as the place of occurrence of the external cause; Y93.89 Activity, other specified; R07.1 Chest pain on breathing; D46.9 Myelodysplastic syndrome, unspecified; D64.9 Anemia, unspecified; N18.9 Chronic kidney disease, unspecified; I12.9 Hypertensive chronic kidney disease with stage 1 through stage 4 chronic kidney disease, or unspecified chronic kidney disease; N40.0 Benign prostatic hyperplasia without lower urinary tract symptoms; Z88.0 Allergy status to penicillin; Z79.899 Other long term (current) drug therapy
CPT/HCPCS: 36415; 36600; 71045; 71260; 80048; 80053; 80076; 81001; 82550; 82553; 82803; 83605; 83880; 84145; 84436; 84443; 84484; 85025; 85027; 85610; 87040; 87070; 87205; 87486; 87581; 87633; 87798; 93005; 93041; 93306; 94640; 94667; 94760; 96361; 96365; 96366; 96372; 96375; 96376; 97116; 97161; 99285; G0378; J1650; J1940; J1956; J2930; J7512; Q9967

== ENCOUNTER → 2024-03-27 | Outpatient (REF) | payer MEDICARE ==
[~2024-03-27] MED LIST changes: +BUDE10.7; +FERR324T21 PO; +FLUTISP
[2024-03-27 14:05] LABS: APPEARANCE, URINE HAZY (CLEAR); BACTERIA, URINE AUTO 1+ (NEGATIVE); BILIRUBIN, URINE AUTO NEGATIVE (NEGATIVE); BLOOD, URINE BLOOD 1+ (NEGATIVE); COLOR, URINE YELLOW (YELLOW); GLUCOSE, URINE (UA) AUTO NEGATIVE (NEGATIVE); KETONE, URINE AUTO NEGATIVE (NEGATIVE); LEUKOCYTE ESTERASE, URINE AUTO 3+ (NEGATIVE); MUCUS, URINE SMALL (NEGATIVE); NITRITE, URINE AUTO NEGATIVE (NEGATIVE); PROTEIN, URINE AUTO 1+ mg/dL (NEGATIVE); RBC, URINE AUTO 8 /HPF (0-3); SQUAMOUS EPITHELIAL CELL UR AU 0 /HPF (0-6); UROBILINOGEN, URINE AUTO 0.2 mg/dL (0.0-2.0); WBC, URINE AUTO TNTC /HPF (0-3)
== END ==
LOC: M SMT 13:19
PROVIDERS: ATTEND Nurse Practitioner Family
DX: R30.0 Dysuria (principal)

== ENCOUNTER 2024-12-12 06:30 | Inpatient (IN) | payer MEDICARE ==
[~2024-12-12] VITALS: Ht 182.9 cm; Wt 95.5 kg
[~2024-12-12 06:30] MED LIST changes: -BUDE10.7; +BUDE10.7 INH; +LEVO1TAB40 PO; -ROSU20TA61 PO; +ROSU20TA86 PO
[2024-12-12] MEDS: LevoFLOXacin IV 750 MG in IV 1 EA IV ONE (07:35)
[2024-12-12] MEDS: ONDANSETRON 4MG 2ML VIAL IV ONE (07:38)
[2024-12-12] MEDS: ACETAMINOPHEN 325 MG TAB PO ONE (07:38)
[2024-12-12] MEDS: NS 500 ML IV ONE (07:45)
[2024-12-12 07:57] LABS: BASO % 0.2 % (0.0-1.0); EOS % 0.1 % (0.0-3.0); HEMATOCRIT 27.8 % (42.0-52.0); HEMOGLOBIN 9.6 g/dl (13.5-17.5); LYMPH # 0.3 10^3/uL (1.5-5.0); LYMPH % 3.3 % (24.0-44.0); MEAN CORPUSCULAR HEMOGLOBIN 34.8 pg (27.0-33.0); MEAN CORPUSCULAR HGB CONC 34.5 g/dl (32.0-36.5); MEAN CORPUSCULAR VOLUME 100.7 fl (80.0-96.0); MONO # 0.5 10^3/uL (0.0-0.8); MONO % 4.9 % (2.0-8.0); NEUTROPHILS # 9.1 10^3/uL (1.5-8.5); NEUTROPHILS % 90.9 % (36.0-66.0); PLATELET COUNT, AUTOMATED 192 10^3/uL (150-450); RED BLOOD COUNT 2.76 10^6/uL (4.30-6.10)
[2024-12-12] MEDS: IPRATROPIUM 0.5MG/ALBUTEROL 2.5MG INH SOL UD 3ML (DUONEB) NEB ONE (08:19)
[2024-12-12 08:45] LABS: ALBUMIN 3.6 G/DL (3.2-5.2); ALKALINE PHOSPHATASE 86 U/L (40-129); ALT/SGPT 19 U/L (7.0-40); AST/SGOT 19 U/L (<34); BILIRUBIN,DIRECT 0.2 MG/DL (<0.4); BILIRUBIN,TOTAL 0.6 MG/DL (0.3-1.2); BLOOD UREA NITROGEN 23 MG/DL (9-23); CALCIUM LEVEL 8.3 MG/DL (8.3-10.6); CARBON DIOXIDE LEVEL 26 MMOL/L (20-31); CHLORIDE LEVEL 99 MMOL/L (98-107); CREATININE FOR GFR 1.14 MG/DL (0.70-1.30); GLOMERULAR FILTRATION RATE > 60.0 (>35); GLUCOSE, FASTING 116 MG/DL (74-106); POTASSIUM SERUM 4.3 MMOL/L (3.5-5.1); SODIUM LEVEL 133 MMOL/L (136-145); TOTAL PROTEIN 6.3 G/DL (5.7-8.2)
[2024-12-12] MEDS ORDERED: ALBU8.5H INH (09:11)
[2024-12-12] MEDS ORDERED: LISI5TAB11 PO (09:11)
[2024-12-12] MEDS ORDERED: HOME MED LIST COMPLETE! XX SCH (09:15)
[2024-12-12] MEDS ORDERED: ALBUTEROL SULFATE 2.5MG/0.5ML INH NEB SOLN NEB PRN (10:55)
[2024-12-12] MEDS ORDERED: LevoFLOXacin IV 750 MG in IV 1 EA IV SCH (10:55)
[2024-12-12 11:45] LABS: C REACTIVE PROTEIN QUANTITATIV 2.39 MG/DL (<1.0)
[2024-12-12] MEDS: OSELTAMIVIR PHOSPHATE 75 MG CAP (TAMIFLU) PO ONE (12:00)
[2024-12-12] MEDS: ACETAMINOPHEN 325 MG TAB PO PRN (13:09)
[2024-12-12] MEDS: IPRATROPIUM 0.5MG/ALBUTEROL 2.5MG INH SOL UD 3ML (DUONEB) NEB SCH (14:00)
[2024-12-12] MEDS: LR 1,000 ML IV SCH (14:15)
[2024-12-12] MEDS: ONDANSETRON 4MG 2ML VIAL IV PRN (14:22)
[2024-12-12 20:30] VITALS: BP 137/84; TEMP 101.2; O2SAT 93
[2024-12-12] MEDS: HEPARIN SOD (PORCINE) 5000UNITS/ML 1ML VIAL/SYRINGE SC SCH (20:39)
[2024-12-12] MEDS: OSELTAMIVIR PHOSPHATE 30MG CAPSULE PO SCH (20:39)
[2024-12-12 22:10] VITALS: TEMP 100.3
[2024-12-13] VITALS (10 sets, daily range): BP systolic 120–131; BP diastolic 57–78; TEMP 97.7–100.1; O2SAT 85–95
[2024-12-13] MEDS: LevoFLOXacin 750 MG TABLET PO SCH (04:36)
[2024-12-13] MEDS ORDERED: VANCOMYCIN HCL IV SCH (05:55)
[2024-12-13] MEDS ORDERED: FLUID PLACE HOLDER IV SCH (05:55)
[2024-12-13] MEDS: VANCOMYCIN HCL 2,000 MG, VIAL MATE ADAPTER 1 EACH in NS 500 ML IV ONE (06:20)
[2024-12-13 06:47] LABS: HEMATOCRIT 26.7 % (42.0-52.0); HEMOGLOBIN 9.1 g/dl (13.5-17.5); MEAN CORPUSCULAR HEMOGLOBIN 35.1 pg (27.0-33.0); MEAN CORPUSCULAR HGB CONC 34.1 g/dl (32.0-36.5); MEAN CORPUSCULAR VOLUME 103.1 fl (80.0-96.0); PLATELET COUNT, AUTOMATED 149 10^3/uL (150-450); RED BLOOD COUNT 2.59 10^6/uL (4.30-6.10); WHITE BLOOD COUNT 7.1 10^3/uL (4.0-10.0)
[2024-12-13 07:05] LABS: BLOOD UREA NITROGEN 21 MG/DL (9-23); CALCIUM LEVEL 8.5 MG/DL (8.3-10.6); CARBON DIOXIDE LEVEL 27 MMOL/L (20-31); CHLORIDE LEVEL 98 MMOL/L (98-107); CREATININE FOR GFR 1.19 MG/DL (0.70-1.30); GLOMERULAR FILTRATION RATE > 60.0 (>35); GLUCOSE, FASTING 90 MG/DL (74-106); MAGNESIUM LEVEL 1.4 MG/DL (1.8-2.4); POTASSIUM SERUM 3.9 MMOL/L (3.5-5.1); SODIUM LEVEL 133 MMOL/L (136-145)
[2024-12-13] MEDS: MAG SULF 1GM/100ML (MAG RUN) 1 GM in IV 1 EA IV SCH (08:46)
[2024-12-13] MEDS ORDERED: ISOVUE-370 76% 100ML VIAL As Ordered ONE (09:54)
[2024-12-13] MEDS: ADVAIR HFA 230/21MCG INHALER INH SCH (10:52)
[2024-12-13] MEDS: TIOTROPIUM INHALER/CAPSULE (SPIRIVA) INH SCH (10:52)
[2024-12-13] MEDS: OMEPRAZOLE 20MG CAP PO SCH (11:20)
[2024-12-13] MEDS: FINASTERIDE 5MG TAB PO SCH (11:21)
[2024-12-13] MEDS: guaiFENesin ER TABLET 600 MG TAB PO SCH (11:21)
[2024-12-13] MEDS: lisinopriL 5 MG TAB PO SCH (11:21)
[2024-12-13] MEDS: SODIUM CHLORIDE HYPERTONIC 3% 4ML NEB SOL INH SCH (13:39)
[2024-12-13] MEDS ORDERED: VANCOMYCIN HCL 1,250 MG, VIAL MATE ADAPTER 1 EACH in NS 250 ML IV SCH (21:00)
[2024-12-13] MEDS: TAMSULOSIN 0.4 MG CAP PO SCH (21:43)
[2024-12-13] MEDS: ROSUVASTATIN 10 MG TAB (CRESTOR) PO SCH (21:43)
[2024-12-14] VITALS (12 sets, daily range): BP systolic 129–130; BP diastolic 70–72; TEMP 97.7; O2SAT 80–94
[2024-12-14 08:10] LABS: BASO % 0.4 % (0.0-1.0); EOS % 0.4 % (0.0-3.0); HEMATOCRIT 26.1 % (42.0-52.0); HEMOGLOBIN 8.8 g/dl (13.5-17.5); LYMPH # 0.8 10^3/uL (1.5-5.0); LYMPH % 16.6 % (24.0-44.0); MEAN CORPUSCULAR HEMOGLOBIN 34.2 pg (27.0-33.0); MEAN CORPUSCULAR HGB CONC 33.7 g/dl (32.0-36.5); MEAN CORPUSCULAR VOLUME 101.6 fl (80.0-96.0); MONO # 0.4 10^3/uL (0.0-0.8); MONO % 8.5 % (2.0-8.0); NEUTROPHILS # 3.5 10^3/uL (1.5-8.5); NEUTROPHILS % 73.3 % (36.0-66.0); PLATELET COUNT, AUTOMATED 137 10^3/uL (150-450); RED BLOOD COUNT 2.57 10^6/uL (4.30-6.10); WHITE BLOOD COUNT 4.8 10^3/uL (4.0-10.0)
[2024-12-14 08:35] LABS: BLOOD UREA NITROGEN 23 MG/DL (9-23); CALCIUM LEVEL 7.8 MG/DL (8.3-10.6); CARBON DIOXIDE LEVEL 25 MMOL/L (20-31); CHLORIDE LEVEL 100 MMOL/L (98-107); CREATININE FOR GFR 1.21 MG/DL (0.70-1.30); GLOMERULAR FILTRATION RATE > 60.0 (>35); GLUCOSE, FASTING 91 MG/DL (74-106); MAGNESIUM LEVEL 1.7 MG/DL (1.8-2.4); POTASSIUM SERUM 3.9 MMOL/L (3.5-5.1); SODIUM LEVEL 135 MMOL/L (136-145)
[2024-12-14] MEDS ORDERED: OSEL75CA PO (09:39)
[2024-12-14] MEDS ORDERED: LEVO1TAB40 PO (09:39)
[2024-12-14] MEDS ORDERED: MAGN500C2 PO (09:39)
[2024-12-14] MEDS ORDERED: OSEL75CA2 PO (10:40)
== END 2024-12-14 12:04 | disposition home health service (06) | DRG 178 ==
LOC: M ED 06:30 → M ED INP 10:06 → M MSPAV 20:14
PROVIDERS: ADMIT Internal Medicine; ATTEND Internal Medicine
DX: J15.69 Pneumonia due to other Gram-negative bacteria (principal); J44.0 Chronic obstructive pulmonary disease with (acute) lower respiratory infection; D46.9 Myelodysplastic syndrome, unspecified; I10 Essential (primary) hypertension; E78.5 Hyperlipidemia, unspecified; N40.0 Benign prostatic hyperplasia without lower urinary tract symptoms; R53.1 Weakness; J10.1 Influenza due to other identified influenza virus with other respiratory manifestations; R11.2 Nausea with vomiting, unspecified; K21.9 Gastro-esophageal reflux disease without esophagitis; Z79.899 Other long term (current) drug therapy; Z87.891 Personal history of nicotine dependence

== ENCOUNTER → 2025-01-06 | Outpatient (CLI) | payer MEDICARE ==
[~2025-01-06] MED LIST changes: +ALBU8.5H INH; +LISI5TAB11 PO; +MAGN500C2 PO; +OSEL75CA PO; +OSEL75CA2 PO; +PRED5TA PO
[2025-01-06 11:08] LABS: BASO % 0.5 % (0.0-1.0); EOS # 0.5 10^3/uL (0.0-0.5); EOS % 7.4 % (0.0-3.0); HEMATOCRIT 29.5 % (42.0-52.0); HEMOGLOBIN 9.5 g/dl (13.5-17.5); LYMPH # 1.2 10^3/uL (1.5-5.0); LYMPH % 18.8 % (24.0-44.0); MEAN CORPUSCULAR HEMOGLOBIN 33.7 pg (27.0-33.0); MEAN CORPUSCULAR HGB CONC 32.2 g/dl (32.0-36.5); MEAN CORPUSCULAR VOLUME 104.6 fl (80.0-96.0); MONO # 0.8 10^3/uL (0.0-0.8); MONO % 12.7 % (2.0-8.0); NEUTROPHILS # 3.7 10^3/uL (1.5-8.5); NEUTROPHILS % 59.8 % (36.0-66.0); PLATELET COUNT, AUTOMATED 213 10^3/uL (150-450); RED BLOOD COUNT 2.82 10^6/uL (4.30-6.10); WHITE BLOOD COUNT 6.1 10^3/uL (4.0-10.0)
[2025-01-06 11:55] LABS: CALCIUM LEVEL 8.4 MG/DL (8.3-10.6); CREATININE FOR GFR 1.28 MG/DL (0.70-1.30); GLOMERULAR FILTRATION RATE 56.7 (>35); MAGNESIUM LEVEL 1.7 MG/DL (1.8-2.4); POTASSIUM SERUM 4.8 MMOL/L (3.5-5.1)
== END ==
LOC: M WUC 08:39
PROVIDERS: ATTEND Family Medicine
DX: E61.2 Magnesium deficiency (principal); J18.9 Pneumonia, unspecified organism

== ENCOUNTER → 2025-01-13 | Outpatient (CLI) | payer MEDICARE | LOC: M RAD 14:14 | PROVIDERS: ATTEND Internal Medicine Pulmonary Disease | DX: J18.9 Pneumonia, unspecified organism (principal) ==

== ENCOUNTER → 2025-01-14 | Outpatient (REF) | payer MEDICARE ==
[2025-01-14 13:03] LABS: BASO % 0.4 % (0.0-1.0); EOS # 0.3 10^3/uL (0.0-0.5); EOS % 5.9 % (0.0-3.0); HEMOGLOBIN 9.6 g/dl (13.5-17.5); LYMPH # 0.9 10^3/uL (1.5-5.0); LYMPH % 17.5 % (24.0-44.0); MEAN CORPUSCULAR HEMOGLOBIN 32.8 pg (27.0-33.0); MEAN CORPUSCULAR VOLUME 102.4 fl (80.0-96.0); MONO # 0.5 10^3/uL (0.0-0.8); NEUTROPHILS # 3.4 10^3/uL (1.5-8.5); NEUTROPHILS % 66.8 % (36.0-66.0); PLATELET COUNT, AUTOMATED 183 10^3/uL (150-450); RED BLOOD COUNT 2.93 10^6/uL (4.30-6.10); WHITE BLOOD COUNT 5.1 10^3/uL (4.0-10.0)
[2025-01-14 13:26] LABS: IRON (FE) 53 UG/DL (65-175); TOTAL IRON BINDING CAPACITY 279 UG/DL (250-425)
[2025-01-14 13:27] LABS: ALBUMIN 3.7 G/DL (3.2-5.2); ALKALINE PHOSPHATASE 84 U/L (40-129); ALT/SGPT 16 U/L (7.0-40); AST/SGOT 13 U/L (<34); BILIRUBIN,TOTAL 0.5 MG/DL (0.3-1.2); BLOOD UREA NITROGEN 26 MG/DL (9-23); CALCIUM LEVEL 9.1 MG/DL (8.3-10.6); CARBON DIOXIDE LEVEL 26 MMOL/L (20-31); CHLORIDE LEVEL 104 MMOL/L (98-107); CREATININE FOR GFR 1.24 MG/DL (0.70-1.30); GLOMERULAR FILTRATION RATE 58.8 (>35); GLUCOSE, FASTING 111 MG/DL (74-106); POTASSIUM SERUM 4.4 MMOL/L (3.5-5.1); SODIUM LEVEL 140 MMOL/L (136-145); TOTAL PROTEIN 6.7 G/DL (5.7-8.2)
[2025-01-14 13:30] LABS: FERRITIN 260.7 NG/ML (10.5-307.3); FOLATE > 24.0 NG/ML (>5.4)
[2025-01-14 13:32] LABS: VITAMIN B12 LEVEL 1294 PG/ML (211-911)
== END ==
LOC: M SHH 11:43
PROVIDERS: ATTEND Specialist
DX: D46.1 Refractory anemia with ring sideroblasts (principal)

== ENCOUNTER → 2025-01-23 | Outpatient (REF) | payer MEDICARE | LOC: M LAB REF 11:40 | PROVIDERS: ATTEND Internal Medicine Pulmonary Disease | DX: J44.9 Chronic obstructive pulmonary disease, unspecified (principal) ==

== ENCOUNTER → 2025-02-04 | Outpatient (REF) | payer MEDICARE ==
[2025-02-04 14:05] LABS: BASO % 0.8 % (0.0-1.0); EOS # 0.2 10^3/uL (0.0-0.5); EOS % 4.7 % (0.0-3.0); HEMATOCRIT 31.8 % (42.0-52.0); HEMOGLOBIN 10.1 g/dl (13.5-17.5); LYMPH % 19.4 % (24.0-44.0); MEAN CORPUSCULAR HEMOGLOBIN 31.6 pg (27.0-33.0); MEAN CORPUSCULAR HGB CONC 31.8 g/dl (32.0-36.5); MEAN CORPUSCULAR VOLUME 99.4 fl (80.0-96.0); MONO # 0.4 10^3/uL (0.0-0.8); MONO % 7.8 % (2.0-8.0); NEUTROPHILS # 3.4 10^3/uL (1.5-8.5); NEUTROPHILS % 66.7 % (36.0-66.0); PLATELET COUNT, AUTOMATED 237 10^3/uL (150-450); WHITE BLOOD COUNT 5.2 10^3/uL (4.0-10.0)
[2025-02-04 14:32] LABS: FERRITIN 255.3 NG/ML (10.5-307.3); FOLATE > 24.0 NG/ML (>5.4); VITAMIN B12 LEVEL 1213 PG/ML (211-911)
[2025-02-04 14:35] LABS: ALBUMIN 3.7 G/DL (3.2-5.2); ALKALINE PHOSPHATASE 84 U/L (40-129); ALT/SGPT 18 U/L (7.0-40); AST/SGOT 17 U/L (<34); BILIRUBIN,TOTAL 0.4 MG/DL (0.3-1.2); BLOOD UREA NITROGEN 29 MG/DL (9-23); CALCIUM LEVEL 8.8 MG/DL (8.3-10.6); CARBON DIOXIDE LEVEL 24 MMOL/L (20-31); CHLORIDE LEVEL 108 MMOL/L (98-107); CREATININE FOR GFR 1.35 MG/DL (0.70-1.30); GLOMERULAR FILTRATION RATE 53.3 (>35); GLUCOSE, FASTING 88 MG/DL (74-106); IRON (FE) 56 UG/DL (65-175); PERCENT SATURATION 20.3 % (19.7-50.0); POTASSIUM SERUM 4.4 MMOL/L (3.5-5.1); SODIUM LEVEL 143 MMOL/L (136-145); TOTAL IRON BINDING CAPACITY 276 UG/DL (250-425); TOTAL PROTEIN 6.6 G/DL (5.7-8.2)
== END ==
LOC: M SHH 13:43
PROVIDERS: ATTEND Specialist
DX: D46.4 Refractory anemia, unspecified (principal)

== ENCOUNTER → 2025-02-25 | Outpatient (REF) | payer MEDICARE ==
[2025-02-25 12:45] LABS: BASO % 0.5 % (0.0-1.0); EOS # 0.3 10^3/uL (0.0-0.5); EOS % 3.9 % (0.0-3.0); LYMPH % 15.8 % (24.0-44.0); MEAN CORPUSCULAR HEMOGLOBIN 31.8 pg (27.0-33.0); MEAN CORPUSCULAR HGB CONC 32.3 g/dl (32.0-36.5); MEAN CORPUSCULAR VOLUME 98.7 fl (80.0-96.0); MONO # 0.6 10^3/uL (0.0-0.8); MONO % 9.9 % (2.0-8.0); NEUTROPHILS # 4.4 10^3/uL (1.5-8.5); NEUTROPHILS % 69.4 % (36.0-66.0); PLATELET COUNT, AUTOMATED 210 10^3/uL (150-450); RED BLOOD COUNT 3.14 10^6/uL (4.30-6.10); WHITE BLOOD COUNT 6.4 10^3/uL (4.0-10.0)
[2025-02-25 13:14] LABS: FERRITIN 221.3 NG/ML (10.5-307.3); TOTAL IRON BINDING CAPACITY 282 UG/DL (250-425)
[2025-02-25 13:15] LABS: ALBUMIN 3.7 G/DL (3.2-5.2); ALKALINE PHOSPHATASE 81 U/L (40-129); ALT/SGPT 20 U/L (7.0-40); AST/SGOT 17 U/L (<34); BILIRUBIN,TOTAL 0.4 MG/DL (0.3-1.2); BLOOD UREA NITROGEN 26 MG/DL (9-23); CALCIUM LEVEL 8.9 MG/DL (8.3-10.6); CARBON DIOXIDE LEVEL 30 MMOL/L (20-31); CHLORIDE LEVEL 104 MMOL/L (98-107); CREATININE FOR GFR 1.22 MG/DL (0.70-1.30); FOLATE > 24.00 NG/ML (>5.4); GLUCOSE, FASTING 77 MG/DL (74-106); IRON (FE) 78 UG/DL (65-175); PERCENT SATURATION 27.7 % (19.7-50.0); POTASSIUM SERUM 4.5 MMOL/L (3.5-5.1); SODIUM LEVEL 142 MMOL/L (136-145); TOTAL PROTEIN 6.5 G/DL (5.7-8.2)
[2025-02-25 13:16] LABS: VITAMIN B12 LEVEL 1063 PG/ML (211-911)
== END ==
LOC: M SHH 11:37
PROVIDERS: ATTEND Nurse Practitioner
DX: D64.9 Anemia, unspecified (principal)

== ENCOUNTER → 2025-03-01 | Outpatient (REF) | payer MEDICARE | LOC: M LAB REF 11:50 | PROVIDERS: ATTEND Nurse Practitioner Women's Health | DX: Z01.89 Encounter for other specified special examinations (principal) ==

== ENCOUNTER 2025-03-31 11:44 | Emergency (ER) | payer MEDICARE ==
[~2025-03-31] VITALS: Ht 182.9 cm; Wt 94.0 kg
[~2025-03-31 11:44] MED LIST changes: -FLOM0.4C39 PO; +TAMS-18 PO
[2025-03-31 12:57] LABS: BASO % 0.6 % (0.0-1.0); EOS # 0.1 10^3/uL (0.0-0.5); EOS % 0.9 % (0.0-3.0); HEMATOCRIT 33.7 % (42.0-52.0); HEMOGLOBIN 10.9 g/dl (13.5-17.5); LYMPH # 0.9 10^3/uL (1.5-5.0); LYMPH % 13.3 % (24.0-44.0); MEAN CORPUSCULAR HEMOGLOBIN 30.5 pg (27.0-33.0); MEAN CORPUSCULAR HGB CONC 32.3 g/dl (32.0-36.5); MEAN CORPUSCULAR VOLUME 94.4 fl (80.0-96.0); MONO # 0.5 10^3/uL (0.0-0.8); MONO % 7.6 % (2.0-8.0); NEUTROPHILS # 5.2 10^3/uL (1.5-8.5); NEUTROPHILS % 77.3 % (36.0-66.0); PLATELET COUNT, AUTOMATED 229 10^3/uL (150-450); RED BLOOD COUNT 3.57 10^6/uL (4.30-6.10); WHITE BLOOD COUNT 6.7 10^3/uL (4.0-10.0)
[2025-03-31 13:05] LABS: CALCIUM LEVEL 8.6 MG/DL (8.3-10.6); CREATININE FOR GFR 1.32 MG/DL (0.70-1.30); GLOMERULAR FILTRATION RATE 52.5 (>35); MAGNESIUM LEVEL 1.8 MG/DL (1.8-2.4); POTASSIUM SERUM 4.7 MMOL/L (3.5-5.1)
[2025-03-31 13:06] LABS: THYROID STIMULATING HORMONE 1.885 uIU/ML (0.55-4.78)
[2025-03-31 13:07] LABS: FREE T4 1.34 NG/DL (0.89-1.76); INR 1.02; PARTIAL THROMBOPLASTIN TIME 26.8 SECONDS (24.8-34.2); PROTHROMBIN TIME 13.7 SECONDS (12.5-14.5)
[2025-03-31 13:38] LABS: MB/CK RELATIVE INDEX 5.95 (< OR =4)
[2025-03-31] MEDS: NS (Normal Saline) 0.9% 1,000 ML IV ONE (13:50)
[2025-03-31] MEDS ORDERED: ISOVUE-370 76% 100ML VIAL As Ordered ONE (14:03)
[2025-03-31 15:07] LABS: CK-MB VALUE MASS 5.3 NG/ML (<3.6)
[2025-03-31 15:09] LABS: MB/CK RELATIVE INDEX 8.03 (< OR =4)
[2025-03-31 15:58] LABS: CK-MB VALUE MASS 4.9 NG/ML (<3.6)
[2025-03-31 16:10] VITALS: O2SAT 97
[2025-03-31 17:00] VITALS: BP 124/77; TEMP 98.1; O2SAT 97
== END 2025-03-31 17:29 | disposition home or self-care (01) ==
LOC: M ED 11:44 → EDBD 11:44 → M ED 17:29
DX: R06.02 Shortness of breath (principal); I95.1 Orthostatic hypotension; I10 Essential (primary) hypertension; I45.10 Unspecified right bundle-branch block; E78.5 Hyperlipidemia, unspecified; N40.0 Benign prostatic hyperplasia without lower urinary tract symptoms; Z87.891 Personal history of nicotine dependence; Z88.0 Allergy status to penicillin; Z79.51 Long term (current) use of inhaled steroids; Z79.52 Long term (current) use of systemic steroids; Z79.899 Other long term (current) drug therapy
CPT/HCPCS: 71046; 71275; 80048; 82550; 82553; 83735; 83880; 84439; 84443; 84484; 85025; 85610; 85730; 87486; 87581; 87633; 87798; 93005; 93041; 94760; 96360; 99285; Q9967

== ENCOUNTER → 2025-04-08 | Outpatient (REF) | payer MEDICARE ==
[2025-04-08 11:28] LABS: BASO % 0.6 % (0.0-1.0); EOS # 0.2 10^3/uL (0.0-0.5); EOS % 3.5 % (0.0-3.0); HEMATOCRIT 31.7 % (42.0-52.0); HEMOGLOBIN 10.2 g/dl (13.5-17.5); LYMPH # 1.2 10^3/uL (1.5-5.0); LYMPH % 24.8 % (24.0-44.0); MEAN CORPUSCULAR HEMOGLOBIN 30.7 pg (27.0-33.0); MEAN CORPUSCULAR HGB CONC 32.2 g/dl (32.0-36.5); MEAN CORPUSCULAR VOLUME 95.5 fl (80.0-96.0); MONO # 0.5 10^3/uL (0.0-0.8); MONO % 11.4 % (2.0-8.0); NEUTROPHILS # 2.7 10^3/uL (1.5-8.5); NEUTROPHILS % 59.3 % (36.0-66.0); PLATELET COUNT, AUTOMATED 215 10^3/uL (150-450); RED BLOOD COUNT 3.32 10^6/uL (4.30-6.10); WHITE BLOOD COUNT 4.6 10^3/uL (4.0-10.0)
[2025-04-08 12:00] LABS: PERCENT SATURATION 22.5 % (19.7-50.0)
[2025-04-08 12:01] LABS: ALBUMIN 3.8 G/DL (3.2-5.2); BILIRUBIN,TOTAL 0.4 MG/DL (0.3-1.2); CALCIUM LEVEL 8.7 MG/DL (8.3-10.6); CREATININE FOR GFR 1.33 MG/DL (0.70-1.30); GLOMERULAR FILTRATION RATE 52.1 (>35); POTASSIUM SERUM 4.3 MMOL/L (3.5-5.1); TOTAL PROTEIN 6.5 G/DL (5.7-8.2)
[2025-04-08 12:04] LABS: FERRITIN 223.5 NG/ML (10.5-307.3)
== END ==
LOC: M SHH 11:09
PROVIDERS: ATTEND Nurse Practitioner
DX: D46.9 Myelodysplastic syndrome, unspecified (principal)

== ENCOUNTER → 2025-09-02 | Outpatient (REF) | payer MEDICARE | LOC: M SFHCDERM 18:05 | PROVIDERS: ATTEND Dermatology | DX: L30.8 Other specified dermatitis (principal) ==